=== PATIENT | male | born 1950 | race Caucasian/White ===

== ENCOUNTER 2017-12-22 13:29 | Inpatient (IN) | payer MEDICARE, OTHER ==
[2017-12-22 14:26] LABS: ABS Basophils 0 10^3/ul (0-0.2); ABS Eosinophils 0.1 10^3/ul (0-0.6); ABS Lymphocytes 1.3 10^3/ul (1.0-4.8); ABS Monocytes 0.5 10^3/ul (0-0.8); ABS Neutrophils 1.7 10^3/ul (1.5-7.7); ABS Nucleated RBC 0 10^3/ul; Eosinophil % 4.1 % (0-6); Hematocrit 31 % (42-52); Hemoglobin 9.7 g/dl (14.0-18.0); Lymphocyte % 35.7 % (25-47); Mean Corpuscular HGB Conc 31 g/dl (31-36); Mean Corpuscular Hemoglobin 26 pg (27-31); Mean Corpuscular Volume 81 fL (80-94); Mean Platelet Volume 8 um3 (7.4-10.4); Nucleated Red Blood Cells % 0.1; Platelet Count 256 10^3/ul (150-450); Red Cell Distribution Width 19 % (10.5-15); White Blood Count 3.6 10^3/ul (3.5-10.8)
[2017-12-22 14:36] LABS: EGFR Non-African American 105.8 (>60)
--- NOTE | 2017-12-22 14:50 | RAD ---
Indication: Slurred speech, weakness, headache. Comparison: No relevant prior exams available on the [facility] for comparison. Technique: Noncontrast CT vertex of skull through foramen magnum. Report: Mild prominence of the cerebral sulci and cerebellar fissures reflecting mild involutional change. Negative for harper matter white matter obscuration. 0.8 cm hypodensity at the RIGHT frontal lobe subcortical white matter reference image 18 of 32 most likely represents volume averaging with adjacent extra-axial space. No intra or extra-axial hemorrhage or mass effect evident. Unremarkable orbital contents. Negative for calvarial or skull base fracture or suspicious focal osseous lesion. Clear visualized paranasal sinuses and mastoid air spaces. Unremarkable scalp. IMPRESSION: 1. Mild involutional change. 2. Negative for intra or extra-axial hemorrhage. 3. Relative low suspicion 0.8 cm hypodensity at the RIGHT frontal lobe subcortical white matter is most suspicious for volume averaging with subjacent extra-axial space however an intra-axial lesion such as an evolving lacunar infarct is not entirely excluded. Correlate with clinical assessment and consider MRI for further evaluation if deemed appropriate.
[2017-12-22] MEDS ORDERED: NS 0.9% 1000 ML* 1,000 ML IV SCH (15:00)
--- NOTE | 2017-12-22 15:29 | RAD ---
HISTORY: Cough, vomiting COMPARISONS: None VIEWS: 3: Frontal and lateral views of the chest. FINDINGS: CARDIOMEDIASTINAL SILHOUETTE: The cardiomediastinal silhouette is normal. DANNY: The danny are normal. PLEURA: The costophrenic angles are sharp. No pleural abnormalities are noted. LUNG PARENCHYMA: The lungs are clear. ABDOMEN: The upper abdomen is clear. There is no subphrenic gas. BONES AND SOFT TISSUES: No bone or soft tissue abnormalities are noted. OTHER: A left-sided pacemaker is noted IMPRESSION: NO ACTIVE CARDIOPULMONARY DISEASE.
[2017-12-23 03:14] LABS: Urine Appearance Clear; Urine Blood Negative (Negative); Urine Color Straw; Urine Ketones Negative (Negative); Urine Protein Negative (Negative); Urine Specific Gravity 1.008 (1.010-1.030); Urine Urobilinogen Negative (Negative)
--- NOTE | 2017-12-23 06:53 | ED ---
Felisha Londono Nilda, scribed for Vineet Hui MD on 12/23/17 at 0119 . Progress - Progress Note Progress Note: This pt was s/o by Dr. Cruz, pending dispo, awaiting MHE. [0638] Ashish ( Psychiatry) states pt will be transferred to [facility] with Dx Bipolar. Course/Dx - Course Course Of Treatment: This pt was s/o by Dr. Cruz, pending dispo, awaiting MHE. [0638] Ashish (Psychiatry) states pt will be transferred to [facility] with Dx Bipolar. - Diagnoses Provider Diagnoses: Bipolar disorder The documentation as recorded by the jemimaibFelisha kan Nilda accurately reflects the service I personally performed and the decisions made by , Vineet Hui MD.
--- NOTE | 2017-12-23 07:37 | RAD ---
INDICATION: Right hip pain after a fall COMPARISON: None TECHNIQUE: 3 views of the right hip were obtained. FINDINGS: Bilaterally the hip prosthesis are anatomically aligned in the AP view and laterally on the right. There is no radiographically apparent fracture or dislocation. IMPRESSION: Anatomic alignment of bilateral hip prostheses. If the patient's symptoms persist follow-up imaging is recommended.
[2017-12-23] MEDS ORDERED: clonazePAM TAB(*) 1 MG PO ONE (09:47)
[2017-12-23] MEDS ORDERED: Citalopram TAB* 40 MG PO ONE (09:48)
[2017-12-23] MEDS ORDERED: Venlafaxine EXT RELEASE CAP* 75 MG PO ONE (09:49)
[2017-12-23] MEDS ORDERED: Nadolol TAB* 40 MG PO ONE (09:49)
[2017-12-23] MEDS ORDERED: amLODIPine TAB* 5 MG PO ONE (09:49)
[2017-12-23] MEDS ORDERED: Potassium Chlor TAB* 10 MEQ TAB.ER PO ONE (09:49)
[2017-12-23] MEDS ORDERED: Aspirin Low Dose CHEW TAB* 81 MG PO ONE (09:50)
[2017-12-23] MEDS ORDERED: Atorvastatin* 10 MG TAB PO ONE (09:50)
[2017-12-23] MEDS ORDERED: Fludrocortisone Acetate TAB* 0.1 MG PO ONE (09:51)
[2017-12-23] MEDS ORDERED: DULoxetine DR CAP* 60 MG CAP.DR PO ONE (09:51)
[2017-12-23] MEDS ORDERED: Gabapentin CAP(*) 300 MG PO ONE (09:51)
[2017-12-23] MEDS ORDERED: Omeprazole CAP* 20 MG PO ONE (09:52)
[2017-12-23] MEDS ORDERED: Losartan TAB* 25 MG PO ONE (09:52)
[2017-12-23] MEDS ORDERED: Labetalol TAB* 200 MG PO ONE (09:52)
--- NOTE | 2017-12-23 11:18 | PN ---
Progress Note - Progress Note Date of Service: 12/23/17 Note: Subjective: Patient denies any complaints or concerns at this time. Patient is distended and not responding to questions appropriately. Multiple medications need to be dispensed this morning. I have ordered all of his medications as he needs them. No when necessary medications is given at this time. He will need more medications at lunch time and again at dinnertime and before bed. He appears to be anxious, and is unable to focus on questions being asked. Objective: VS stable No change to current medications Cooperative and comfortable, yet distant and tangential Appearance: WDW, comfortable, pleasant, alert Skin: Soft dry skin, no lesions. Eyes: CHANTEL, EOMI, Conjunctiva pink with no redness or exudates. Neck: Full range of motion. Pulm: Chest symmetrical expansion. No deformities on posterior chest wall. Lungs clear to auscultation and percussion, without adventitious sounds. CV: Heart soundsRRR, Normal S1 and single S2. No S3, S4, rubs, or murmurs. Musculoskeletal: ROM WNL in all extremities. No deformities noted. Neuro: A&OX3 Psych: Logical, coherent Assessment: Patient has participated in plan with compliance to medications while awaiting assessment. Dx at this time remains Bipolar disorder. Plan: Continue mediations as prescribed. Will continue to monitor psych behaviors and need for any medication. Will provide a patient to provider assessment within every 24 hours during stay until safe discharge/transfer/ admission plan is established.
[2017-12-23] MEDS ORDERED: Al Hydrox/Mg Hydrox/Simet LIQ* 30 ML UDC PO PRN (12:07)
[2017-12-23] MEDS ORDERED: Acetaminophen TAB* 325 MG PO PRN (12:07)
--- NOTE | 2017-12-23 12:51 | ED ---
Cedrick Londono Angela, scribed for Nilesh Sargent MD on 12/23/17 at 1201 . Progress - Progress Note Progress Note: This pt was signed out by Dr. Hui, pending disposition, awaiting MHE. Pt was evaluated by the mental health furniture finisher and Dr. Tapia. Dr. Tapia recommends the pt to be admitted. Pt will be admitted to [facility], in stable condition, with a diagnosis of suicidal behavior and depressive disorder. Condition: Stable Disposition: Admit to [facility] Course/Dx - Diagnoses Provider Diagnoses: Suicidal behavior, Depressive disorder The documentation as recorded by the Cedrick moe Angela accurately reflects the service I personally performed and the decisions made by Arie owodward Walter, MD.
[2017-12-23] MEDS: ARIPiprazole TAB* 5 MG PO SCH (17:33)
[2017-12-23] MEDS: Gabapentin CAP(*) 300 MG PO SCH ×2 (17:34→20:19)
[2017-12-23] MEDS: Potassium Chlor TAB* 10 MEQ TAB.ER PO SCH (17:34)
[2017-12-23] MEDS: Butalb/Acetamin/Caff TAB* 1 TAB PO PRN (17:34)
[2017-12-23] MEDS: clonazePAM TAB(*) 1 MG PO PRN (17:34)
[2017-12-23] MEDS: Divalproex ER TAB(*) 500 MG PO SCH (20:18)
[2017-12-23] MEDS: Labetalol TAB* 200 MG PO SCH (20:20)
[2017-12-23] MEDS: Nadolol TAB* 40 MG PO SCH (20:20)
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
[2017-12-24] MEDS: Losartan TAB* 25 MG PO SCH (08:39)
[2017-12-24] MEDS: Atorvastatin* 20 MG TAB PO SCH (08:39)
[2017-12-24] MEDS: ARIPiprazole TAB* 5 MG PO SCH (08:39)
[2017-12-24] MEDS: DULoxetine DR CAP* 60 MG CAP.DR PO SCH (08:39)
[2017-12-24] MEDS: Nadolol TAB* 40 MG PO SCH ×2 (08:39→20:58)
[2017-12-24] MEDS: Aspirin EC Low Dose* 81 MG TAB.EC PO SCH (08:40)
[2017-12-24] MEDS: Potassium Chlor TAB* 10 MEQ TAB.ER PO SCH ×2 (08:40→17:42)
[2017-12-24] MEDS: amLODIPine TAB* 5 MG PO SCH (08:40)
[2017-12-24] MEDS: Omeprazole CAP* 20 MG PO SCH (08:40)
[2017-12-24] MEDS: Gabapentin CAP(*) 300 MG PO SCH ×3 (08:40→20:57)
[2017-12-24] MEDS: Labetalol TAB* 200 MG PO SCH ×2 (08:40→20:58)
[2017-12-24] MEDS: Butalb/Acetamin/Caff TAB* 1 TAB PO PRN ×3 (08:42→21:01)
[2017-12-24] MEDS: Divalproex ER TAB(*) 500 MG PO SCH (20:58)
[2017-12-24] MEDS: clonazePAM TAB(*) 1 MG PO PRN (21:03)
[2017-12-25] MEDS: Omeprazole CAP* 20 MG PO SCH (08:33)
[2017-12-25] MEDS: ARIPiprazole TAB* 5 MG PO SCH (08:33)
[2017-12-25] MEDS: Aspirin EC Low Dose* 81 MG TAB.EC PO SCH (08:33)
[2017-12-25] MEDS: Atorvastatin* 20 MG TAB PO SCH (08:33)
[2017-12-25] MEDS: DULoxetine DR CAP* 60 MG CAP.DR PO SCH (08:34)
[2017-12-25] MEDS: Losartan TAB* 25 MG PO SCH (08:34)
[2017-12-25] MEDS: Potassium Chlor TAB* 10 MEQ TAB.ER PO SCH ×2 (08:34→17:40)
[2017-12-25] MEDS: amLODIPine TAB* 5 MG PO SCH (08:34)
[2017-12-25] MEDS: Gabapentin CAP(*) 300 MG PO SCH ×3 (08:34→20:58)
[2017-12-25] MEDS: Nadolol TAB* 40 MG PO SCH ×2 (08:36→20:58)
[2017-12-25] MEDS: Butalb/Acetamin/Caff TAB* 1 TAB PO PRN ×3 (09:04→21:41)
[2017-12-25] MEDS: Labetalol TAB* 200 MG PO SCH ×2 (09:05→20:57)
[2017-12-25] MEDS: clonazePAM TAB(*) 1 MG PO PRN ×2 (10:04→20:57)
[2017-12-25] MEDS: Divalproex ER TAB(*) 500 MG PO SCH (20:57)
--- NOTE | 2017-12-25 22:29 | PN ---
Subjective - Subjective Date of Service: 12/25/17 Service Type: 70554 Hosp care 15 min low complexity Subjective: Mr. King is on wheelchair and was in the milieu. Appeared happy and denied any psychiatric complaints. Says he has been focusing on his el and accepting the losses or relationship better. Looking int an appartment for discharge. Denies any thoughts to harm self or others. Objective - Appearance Appearance: Healthy Appearing Dysmorphic Features: No Hygiene: Normal Grooming: Well Kept - Behavior Psychomotor Activities: Normal Exhibits Abnormal Movement: No - Attitude and Relatedness Attitude and Relatedness: Appropriate Eye Contact: Good - Speech Quality: Unpressured Latencies: Normal Quantity: Appropriate - Mood Patient's Decription of Mood: "Fine" - Affect Observed Affect: Non-labile - Thought Process Patient's Thought Process: Coherent, Goal Directed Thought Content: No Passive Wish, No Suicidal Planning, No Homicidal Ideation, No Paranoid Ideation - Sensorium Experiencing Hallucinations: No, Sensorium is Clear Type of Hallucinations: Visual: No, Auditory: No, Command: No - Level of Consciousness Level of Consciousness: Alert Orientation: Yes Intact, Yes Orientated to Time, Yes Orientated to Place, Yes Orientated to Person - Impulse Control Impulse Control: Tenuous - Insight and Judgement Insight and Judgement: Fair - Group Participation Particating in Group Activities: Yes - Medication Management Medication Management Adherence: Yes Assessment - Assessment Merits Inpatient Hospitalization: For Immediate Safety, For Stabilization, Pending Safe DC Plan Plan - Plan Treatment Plan: Name: ROYAL KING Birthdate: 1950 [id number] Continued Medication Management: Continue Outpt Medication Medications: Current Medications Acetaminophen (Tylenol Tab*) 650 mg PO Q4H PRN PRN Reason: for pain; or Temp >101 F Acetaminophen/Butalbital/Caffeine (Fioricet Tab*) 1 tab PO Q6H PRN PRN Reason: HEADACHE Last Admin: 12/25/17 21:41 Dose: 1 tab Al Hydrox/Mg Hydrox/Simethicone (Maalox Plus*) 30 ml PO Q4H PRN PRN Reason: INDIGESTION Last Admin: 12/23/17 17:33 Dose: 30 ml Amlodipine Besylate (Norvasc Tab*) 5 mg PO DAILY [facility] Last Admin: 12/25/17 08:34 Dose: 5 mg Aripiprazole (Abilify Tab*) 5 mg PO DAILY [facility] Last Admin: 12/25/17 08:33 Dose: 5 mg Aspirin (Aspirin Ec Low Dose*) 81 mg PO DAILY [facility] Last Admin: 12/25/17 08:33 Dose: 81 mg Atorvastatin Calcium (Lipitor*) 20 mg PO DAILY [facility] PRN Reason: Protocol Last Admin: 12/25/17 08:33 Dose: 20 mg Clonazepam (Klonopin Tab(*)) 1 mg PO BID PRN PRN Reason: ANXIETY Last Admin: 12/25/17 20:57 Dose: 1 mg Divalproex Sodium (Depakote Er Tab(*)) 1,000 mg PO BEDTIME [facility] Last Admin: 12/25/17 20:57 Dose: 1,000 mg Duloxetine HCl (Cymbalta Cap*) 60 mg PO DAILY [facility] Last Admin: 12/25/17 08:34 Dose: 60 mg Gabapentin (Neurontin Cap(*)) 600 mg PO TID [facility] Last Admin: 12/25/17 20:58 Dose: 600 mg Sodium Chloride (Ns 0.9% 1000 Ml*) 1,000 mls @ 150 mls/hr IV PER RATE [facility] Last Admin: 12/22/17 16:31 Dose: 150 mls/hr Labetalol HCl (Trandate Tab*) 200 mg PO BID [facility] Last Admin: 12/25/17 20:57 Dose: 200 mg Losartan Potassium (Cozaar Tab*) 100 mg PO DAILY [facility] Last Admin: 12/25/17 08:34 Dose: 100 mg Nadolol (Corgard Tab*) 20 mg PO BID [facility] Last Admin: 12/25/17 20:58 Dose: 20 mg Omeprazole (Prilosec Cap*) 20 mg PO DAILY [facility] Last Admin: 12/25/17 08:33 Dose: 20 mg Potassium Chloride (Klor Con Er Tab*) 10 meq PO BID WITH MEALS [facility] Last Admin: 12/25/17 17:40 Dose: 10 meq - Discharge Plan Discharge Plan: Outpatient Follow Up Outpatient Program: [facility]
[2017-12-26] MEDS: amLODIPine TAB* 5 MG PO SCH (07:53)
[2017-12-26] MEDS: Potassium Chlor TAB* 10 MEQ TAB.ER PO SCH ×2 (07:54→16:50)
[2017-12-26] MEDS: Atorvastatin* 20 MG TAB PO SCH (07:54)
[2017-12-26] MEDS: ARIPiprazole TAB* 5 MG PO SCH (07:54)
[2017-12-26] MEDS: clonazePAM TAB(*) 1 MG PO PRN ×2 (07:54→20:42)
[2017-12-26] MEDS: DULoxetine DR CAP* 60 MG CAP.DR PO SCH (07:54)
[2017-12-26] MEDS: Aspirin EC Low Dose* 81 MG TAB.EC PO SCH (07:54)
[2017-12-26] MEDS: Omeprazole CAP* 20 MG PO SCH (07:54)
[2017-12-26] MEDS: Butalb/Acetamin/Caff TAB* 1 TAB PO PRN ×3 (07:55→21:29)
[2017-12-26] MEDS: Labetalol TAB* 200 MG PO SCH (07:56)
[2017-12-26] MEDS: Nadolol TAB* 40 MG PO SCH ×2 (07:56→20:40)
[2017-12-26] MEDS: Gabapentin CAP(*) 300 MG PO SCH ×3 (07:58→20:38)
[2017-12-26] MEDS: Losartan TAB* 25 MG PO SCH (10:57)
[2017-12-26 13:02] LABS: ABS Basophils 0 10^3/ul (0-0.2); ABS Eosinophils 0.1 10^3/ul (0-0.6); ABS Lymphocytes 0.8 10^3/ul (1.0-4.8); ABS Monocytes 0.6 10^3/ul (0-0.8); ABS Neutrophils 2.3 10^3/ul (1.5-7.7); ABS Nucleated RBC 0 10^3/ul; Eosinophil % 2.2 % (0-6); Hematocrit 31 % (42-52); Hemoglobin 9.9 g/dl (14.0-18.0); Lymphocyte % 21.9 % (25-47); Mean Corpuscular HGB Conc 32 g/dl (31-36); Mean Corpuscular Hemoglobin 26 pg (27-31); Mean Corpuscular Volume 81 fL (80-94); Mean Platelet Volume 7 um3 (7.4-10.4); Nucleated Red Blood Cells % 0.1; Platelet Count 293 10^3/ul (150-450); Red Blood Count 3.77 10^6/ul (4.0-5.4); Red Cell Distribution Width 19 % (10.5-15); White Blood Count 3.8 10^3/ul (3.5-10.8)
[2017-12-26 13:07] LABS: Corrected Retic Count 0.6 % (0.5-1.5); Hematocrit for Retic CNT 31 % (42-52); RBC Retic Count 3.77 10^6/ul (4.6-6.2)
[2017-12-26 13:20] LABS: EGFR Non-African American 107.5 (>60)
--- NOTE | 2017-12-26 14:56 | RAD ---
Indication: Headaches for 6 months. History of ALS. Recent behavioral change. Question brain mass. Comparison: December 22, 2017 Technique: Noncontrast CT vertex of skull through foramen magnum. Report: Unremarkable cerebral sulci, ventricles, and basal cisterns. Mild prominence of the cerebellar fissures reflecting atrophy. Negative for harper matter white matter obscuration, intra or extra-axial hemorrhage, or mass effect. Clear partially visualized paranasal sinuses and mastoid air spaces. No suspicious skull base or calvarial lesions. Unremarkable scalp. IMPRESSION: No evidence for a brain mass within limits of noncontrast CT. Mild cerebellar atrophy.
--- NOTE | 2017-12-26 16:43 | PN ---
Subjective - Subjective Service Type: 09102 Hosp care 25 min moderate complexity Subjective: Patient reports he is "terrified" in regards to pursuing divorce. He states she will likely be served on Tuesday and she will be very angry. He states he is concerned about being homeless and without his car. He has been in touch with his children, Frederick and José as well as an real estate attorney friend, Shantanu. They have discussed the potential for Pierre to return to [place] to help care for his mother. He asked to complete an MMPI. He asked that his children be involved in his care. He states "Frederick needs to know I'm compliant with treatment." Residential Team Leader left s for both Robe and Jocelyne. Objective - Appearance Appearance: Well Developed/Nourished, Thin Framed Dysmorphic Features: Yes Hygiene: Dirty Grooming: Fairly Well Kept - Behavior Psychomotor Activities: Abnormal-Decreased Exhibits Abnormal Movement: Yes - Attitude and Relatedness Attitude and Relatedness: Cooperative Eye Contact: Fair - Speech Quality: Unpressured Latencies: Normal Quantity: Appropriate - Mood Patient's Decription of Mood: "terrified" - Affect Observed Affect: Depressed Affect Consistent with: Dysphoria - Thought Process Patient's Thought Process: Coherent, Goal Directed Thought Content: Yes Passive Wish, No Suicidal Planning, No Homicidal Ideation, No Paranoid Ideation - Sensorium Experiencing Hallucinations: No, Sensorium is Clear Type of Hallucinations: Visual: No, Auditory: No, Command: No - Level of Consciousness Level of Consciousness: Alert Orientation: Yes Intact, Yes Orientated to Time, Yes Orientated to Place, Yes Orientated to Person - Impulse Control Impulse Control: Tenuous - Insight and Judgement Insight and Judgement: Fair - Group Participation Particating in Group Activities: Yes - Medication Management Medication Management Adherence: Yes Assessment - Assessment Merits Inpatient Hospitalization: For Immediate Safety, For Stabilization, Consolidate Improvements, Pending Safe DC Plan Inpatient DSM-V Dx: F31.4 Clinical Impression: 67yo white male with history of bipolar d/o. He presented to ED with syncopal episode and was flagged for psychiatric needs. Recently, he has been hospitalized multiple times in the [place] system for suicidal gestures. He merits hospitalization for immediate safety and stabilization. Plan - Plan Treatment Plan: Name: ROYAL BARTON Birthdate: 1950 [id number] Continued Medication Management: Start Medication Medications: Current Medications Acetaminophen (Tylenol Tab*) 650 mg PO Q4H PRN PRN Reason: for pain; or Temp >101 F Acetaminophen/Butalbital/Caffeine (Fioricet Tab*) 1 tab PO Q6H PRN PRN Reason: HEADACHE Last Admin: 12/26/17 14:19 Dose: 1 tab Al Hydrox/Mg Hydrox/Simethicone (Maalox Plus*) 30 ml PO Q4H PRN PRN Reason: INDIGESTION Last Admin: 12/23/17 17:33 Dose: 30 ml Amlodipine Besylate (Norvasc Tab*) 5 mg PO DAILY [facility] Last Admin: 12/26/17 07:53 Dose: 5 mg Aripiprazole (Abilify Tab*) 5 mg PO DAILY [facility] Last Admin: 12/26/17 07:54 Dose: 5 mg Aspirin (Aspirin Ec Low Dose*) 81 mg PO DAILY [facility] Last Admin: 12/26/17 07:54 Dose: 81 mg Atorvastatin Calcium (Lipitor*) 20 mg PO DAILY [facility] PRN Reason: Protocol Last Admin: 12/26/17 07:54 Dose: 20 mg Clonazepam (Klonopin Tab(*)) 1 mg PO BID PRN PRN Reason: ANXIETY Last Admin: 12/26/17 07:54 Dose: 1 mg Divalproex Sodium (Depakote Er Tab(*)) 1,000 mg PO BEDTIME [facility] Last Admin: 12/25/17 20:57 Dose: 1,000 mg Duloxetine HCl (Cymbalta Cap*) 60 mg PO DAILY [facility] Last Admin: 12/26/17 07:54 Dose: 60 mg Fludrocortisone Acetate (Florinef Tab*) 0.1 mg PO DAILY [facility] Gabapentin (Neurontin Cap(*)) 600 mg PO TID [facility] Last Admin: 12/26/17 14:18 Dose: 600 mg Sodium Chloride (Ns 0.9% 1000 Ml*) 1,000 mls @ 150 mls/hr IV PER RATE [facility] Last Admin: 12/22/17 16:31 Dose: 150 mls/hr Labetalol HCl (Trandate Tab*) 100 mg PO BID [facility] Losartan Potassium (Cozaar Tab*) 100 mg PO DAILY [facility] Last Admin: 12/26/17 10:57 Dose: 100 mg Nadolol (Corgard Tab*) 20 mg PO BID [facility] Last Admin: 12/26/17 07:56 Dose: 20 mg Omeprazole (Prilosec Cap*) 20 mg PO DAILY [facility] Last Admin: 12/26/17 07:54 Dose: 20 mg Potassium Chloride (Klor Con Er Tab*) 10 meq PO BID WITH MEALS [facility] Last Admin: 12/26/17 07:54 Dose: 10 meq - Discharge Plan Discharge Plan: Consider Longer Term Tx
[2017-12-26] MEDS: Divalproex ER TAB(*) 500 MG PO SCH (20:41)
--- NOTE | 2017-12-26 20:56 | CONS ---
CC: Dr. Grayson, Tr Aguirre; Ruth Escobar NP * CONSULTATION REPORT: DATE OF CONSULT: 12/26/17 PRIMARY CARE PROVIDER: Dr. Grayson from [facility]. REQUESTING PROVIDER FOR CONSULT: Ruth Escobar NP MY ATTENDING PHYSICIAN WHILE IN THE HOSPITAL: Dr. Jose Antonio Lam (report dictated by Turner Sims NP) REASON FOR MEDICAL CONSULT: 1. Evaluation of medical problems and comorbid medical management. 2. Evaluation of syncope. HISTORY OF PRESENT ILLNESS: Mr. King is 67-year-old male patient, who presented to behavioral services unit on 12/23/17 with complaints of having suicidal ideation. He had multiple overdose attempts in the past. He was endorsing wish and depression. He was recently at [facility] in [place] for this. He was discharged. He presented to our ED and was admitted for stabilization. He endorses the fact that he has a significant history, says he has been hospitalized several times since March of 2017 for multiple reasons. 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 He says he also carries a history of PE, DVTs, peptic ulcer disease, hypertension, history of CVA, history of MRSA, depression , orthostatic hypotension. He has a history of lupus as well according to the patient. He says that this weekend on Tuesday, he had an episode where he was standing by the phone, down at the [facility], he had an episode where he fainted. He says that it was typical of his normal fainting spells. He had no chest pain. He just felt like he was going under for anesthesia, he went out, he came to. He does not know how long he was out for, he knew where he was. He denied having any again chest pain prior to or after. No shortness of breath. He says he has not had any more episodes, but again it is not uncommon for him to pass out. He says he was also noted to be on multiple different blood pressure medications and we were asked to help manage this and help also evaluate the syncope. Denies any recent fevers or chills. No vomiting or diarrhea. There have been no recent changes in his medications, and because of his medical complexity, we were asked to evaluate. PAST MEDICAL HISTORY: Significant for: 1. Syncope. 2. Orthostatic hypotension. 3. PE. 4. Hypertension. 5. CVA. 6. 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 7. He has a history of depression. 8. Also, history of MRSA and lupus according to the patient. PAST SURGICAL HISTORY: 1. He has a history of bilateral hip replacement. 2. He has had right knee replacement. 3. He has had multiple right hip revisions secondary to infections. 4. He has had an IVC filter placement. 5. He has had a pacemaker implanted on his right chest wall, which was then removed secondary to infection and now he has the pacemaker in the left chest wall, and he has had again IVC filter. MEDICATIONS: His home meds include: 1. Potassium 10 mEq p.o. b.i.d. with meals. 2. Klonopin 1 mg p.o. b.i.d. as needed. 3. Fioricet 1 capsule four times a day as needed. 4. Tylenol with caffeine 1 tablet every 6 hours as needed. 5. Celexa 40 mg a day. 6. Effexor 150 mg a day. 7. Nadolol 20 mg p.o. b.i.d. 8. Norvasc 5 mg daily. 9. Crestor 10 mg daily. 10. Aspirin 81 mg daily. 11. Florinef 0.1 mg p.o. daily. 12. Cymbalta 60 mg daily. 13. Neurontin 600 mg p.o. t.i.d. 14. Labetalol 200 mg p.o. b.i.d. 15. Cozaar 100 mg daily. 16. Melatonin 10 to 20 mg daily as needed. 17. Protonix 40 mg daily. 18. Requip 0.75 mg p.o. at bedtime. ALLERGIES TO MEDICATIONS: Include DEMEROL. FAMILY HISTORY: His mother had dementia. Father had a history of COPD and lupus as well. 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 He does not smoke. Does not drink alcohol. Surrogate decision maker is his friend, Shantanu. REVIEW OF SYSTEMS: There is no documented fever. He denies having any significant weight change. There was no double vision. He denies having any ear discharge. There has been no rhinorrhea, no sore throat, no thyroid enlargement, and denied having any chest pain. There was no orthopnea. There was no nocturnal dyspnea. Denied having any abdominal pain. There was no nausea, no vomiting. There was no dysuria, there was no frequency. No seizure. He did have this loss of conscience. No pruritus, he had no skin ulcerations. Review of 14 systems was completed, all others negative. PHYSICAL EXAM: Blood pressure 144/79 with a pulse 64; respirations 16; O2 saturation 99%, one this morning was read as 87%, we will repeat this; his temperature was 98.3. General: At this time, Mr. King is a 67-year-old male patient. He is sitting in the psychiatric bed. He does not appear to be in any acute distress. He is awake, he is alert, he is oriented x3. HEENT: Head: Atraumatic. Eyes: EOMs intact. Sclerae anicteric, not pale. Throat: Oral mucosa appears to be moist. No oropharyngeal erythema. Neck: Supple. Heart: Sounds S1, S2. He had regular rate and rhythm. No murmurs, rubs, or gallops. His lungs were clear to auscultation bilaterally. No wheezes, rales, or rhonchi. Abdomen: Soft, it was flat, it was nontender. Bowel sounds present. Extremities: Pulses were 2+ throughout. He had no peripheral edema noted. 5/5 strength. Neurologically, he is awake, he is alert, he is oriented x3. His speech is clear. His gait, he was able to walk from the comfort room in the psychiatric unit to 213 and he had a steady gait with a cane. He had no ataxia that I could elicit. His tongue was midline. Cranial nerves were intact. He had no gross focal deficits. His skin was intact. DIAGNOSTIC STUDIES/LAB DATA: Labs from 12/22/17, WBC of 3.6; RBC of 3.80; hemoglobin of 9.7, I have no previous records; hematocrit of 31; platelet count of 256. The sodium was 140, potassium 3.9, chloride 108, bicarb 26, BUN 15, creatinine 0.74, glucose 89, A1c is 6.0, calcium 8.9. Total bili 0.2, AST 19, ALT 15, alk phos 62. Total protein is 6.7, albumin 3.6. LDH was 67. Urine obtained was negative. Toxicology positive for barbiturates. DIAGNOSTIC DATA: Brain CT showed mild involutional change. Negative for intra or extraaxial hemorrhage, relatively low suspicion, 0.8-cm hypodensity at the right frontal lobe, subcortical white matter, mostly suspicious for volume averaging with subjacent extraaxial space; however, an intra-axial lesion such as an evolving infarct is not entirely excluded. Correlate with clinic assessment and consider MRI for further evaluation if deemed appropriate. Chest x-ray showed no active cardiopulmonary disease. He had a hip and pelvis x-ray, which showed anatomical alignment with bilateral hip prosthesis. EKG shows atrial paced rhythm, rate of 70. Old medical records were reviewed. ASSESSMENT AND PLAN: Mr. King is a 67-year-old male patient with a complex medical history coming into our psychiatric unit for stabilization of depression and suicidal ideation. We were asked to evaluate in consult for syncope and medical management of his comorbid medical problems. Our recommendations at this point are: 1. Depression, suicidal ideation. I will defer the management to psychiatric services and their team. 2. Syncope. Etiology is unclear. He has had multiple episodes of this. It could be related to the multiple system atrophy that he does have as there is autonomic dysfunction with this disease. I think foremost we need to get orthostatic blood pressures, interrogate the pacemaker, cut back on his beta chaz, and get him back on his Florinef. I am going to cut back on labetalol to 100 mg b.i.d., see how his blood pressure responds, get him back on his Florinef, and continue to monitor him. 3. History of pulmonary embolism. We will get records from [place] where he had the IVC filter put in. He says he was now put on blood thinners due to peptic ulcer disease, because he was diagnosed with 14 ulcers. We will try to get records to confirm this. 4. Hypertension. Again, blood pressure is 140 here. I will go ahead and cut back on the labetalol. I would like to let the patient run on the higher side. We will get orthostatic blood pressures and we will continue to follow. 5. Cerebrovascular accident. Continue with secondary prevention. 6. History of multiple system atrophy-P. Again, at this point, he did not have a rigid gait, he did not have any ataxia, and there were no tremors. However, I would like to get records from when this diagnosis was diagnosed in [place]. I have requested these records for the patient to continue with further management and we will continue with medication and supportive care at this point. 7. Orthostatic hypotension. Again, he has a history of this. We are going to repeat the vital signs today. Continue with Florinef. Cut back on some of his blood pressure meds. 8. Lupus. We will continue his current medical regimen and get records from his primary. 9. Anemia. Again, this could be his baseline; it is unclear. We will send off iron studies, B12, folate studies, retic count as well. I will get a Hemoccult as well. We will repeat his H and H now and repeat again tomorrow morning. 10. Question of brain mass. Unfortunately, he cannot have an MRI due to the pacemaker. He does say it is MRI safe, but we will try to get records to confirm this, but for the time being, I am going to repeat a CT of the brain to reevaluate this. If we need to, we could always get Neurology input. 11. DVT prophylaxis. Again, I would encourage ambulation. 12. Fluids, electrolytes, and nutrition. He can have a regular diet. 13. Code status. He wishes to be a DNR. TIME SPENT: On consult was 70 minutes, greater than half that time was spent face- to-face with the patient obtaining my history and physical, the other half time was spent going over the plan of care with the patient and implementing the plan of care. I discussed the plan of care with my attending, Dr. Lam; he is in agreement. TURNER SIMS, JOSEPH [id number]/CPS #: [id number] ROBERTO
[2017-12-26] MEDS: Labetalol TAB* 100 MG PO SCH (22:41)
[2017-12-27 08:03] LABS: Hematocrit 29 % (42-52); Hemoglobin 9.5 g/dl (14.0-18.0); Mean Corpuscular HGB Conc 33 g/dl (31-36); Mean Corpuscular Hemoglobin 26 pg (27-31); Mean Corpuscular Volume 80 fL (80-94); Mean Platelet Volume 8 um3 (7.4-10.4); Platelet Count 274 10^3/ul (150-450); Red Blood Count 3.66 10^6/ul (4.0-5.4); Red Cell Distribution Width 19 % (10.5-15); White Blood Count 2.8 10^3/ul (3.5-10.8)
[2017-12-27 08:45] LABS: ABS Basophils 0 10^3/ul (0-0.2); ABS Eosinophils 0.1 10^3/ul (0-0.6); ABS Lymphocytes 1.2 10^3/ul (1.0-4.8); ABS Monocytes 0.7 10^3/ul (0-0.8); ABS Neutrophils 0.8 10^3/ul (1.5-7.7); ABS Nucleated RBC 0 10^3/ul; Eosinophil % 4.3 % (0-6); Lymphocyte % 42.6 % (25-47); Nucleated Red Blood Cells % 0.1
[2017-12-27] MEDS: ARIPiprazole TAB* 5 MG PO SCH (09:02)
[2017-12-27] MEDS: Potassium Chlor TAB* 10 MEQ TAB.ER PO SCH ×2 (09:02→15:56)
[2017-12-27] MEDS: Atorvastatin* 20 MG TAB PO SCH (09:02)
[2017-12-27] MEDS: Gabapentin CAP(*) 300 MG PO SCH ×3 (09:02→20:39)
[2017-12-27] MEDS: Aspirin EC Low Dose* 81 MG TAB.EC PO SCH (09:02)
[2017-12-27] MEDS: Losartan TAB* 25 MG PO SCH (09:02)
[2017-12-27] MEDS: Omeprazole CAP* 20 MG PO SCH (09:02)
[2017-12-27] MEDS: DULoxetine DR CAP* 60 MG CAP.DR PO SCH (09:03)
[2017-12-27] MEDS: Labetalol TAB* 200 MG PO SCH (09:03)
[2017-12-27] MEDS: amLODIPine TAB* 5 MG PO SCH (09:03)
[2017-12-27] MEDS: clonazePAM TAB(*) 1 MG PO PRN ×2 (09:03→20:39)
[2017-12-27] MEDS: Nadolol TAB* 40 MG PO SCH ×2 (09:04→20:38)
[2017-12-27] MEDS: Fludrocortisone Acetate TAB* 0.1 MG PO SCH (09:56)
[2017-12-27] MEDS: Labetalol TAB* 100 MG PO SCH ×2 (09:56→20:38)
[2017-12-27] MEDS: Butalb/Acetamin/Caff TAB* 1 TAB PO PRN ×2 (11:02→18:51)
[2017-12-27] MEDS ORDERED: Divalproex ER TAB(*) 500 MG PO SCH (12:55)
--- NOTE | 2017-12-27 13:29 | PN ---
Subjective - Subjective Service Type: 08491 Hosp care 35 min high complexity Subjective: Pierre presents as dysphoric with restricted affect. He continues to be anxious about the reaction his may have when she is served divorce papers. He is notified of blood tests, hospitalist involvement and plan to hold depakote. He states he has been told in the past that about anemia. He states he wants to compliant with treatment. 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 He requested to work on an Pre[employer] and is doing so, albeit slowly. He is interactive and social in the milieu. Objective - Appearance Appearance: Thin Framed Dysmorphic Features: Yes Hygiene: Normal Grooming: Fairly Well Kept - Behavior Psychomotor Activities: Normal Exhibits Abnormal Movement: No - Attitude and Relatedness Attitude and Relatedness: Cooperative Eye Contact: Good - Speech Quality: Unpressured Latencies: Normal Quantity: Appropriate - Mood Patient's Decription of Mood: "Anxious" - Affect Observed Affect: Depressed Affect Consistent with: Dysphoria - Thought Process Patient's Thought Process: Coherent, Over Inclusive Thought Content: No Passive Wish, No Suicidal Planning, No Homicidal Ideation, No Paranoid Ideation - Sensorium Experiencing Hallucinations: No, Sensorium is Clear Type of Hallucinations: Visual: No, Auditory: No, Command: No - Level of Consciousness Level of Consciousness: Alert Orientation: Yes Intact, Yes Orientated to Time, Yes Orientated to Place, Yes Orientated to Person - Impulse Control Impulse Control: Tenuous - Insight and Judgement Insight and Judgement: Fair - Group Participation Particating in Group Activities: Yes - Medication Management Medication Management Adherence: Yes Assessment - Assessment Merits Inpatient Hospitalization: For Immediate Safety, For Stabilization, Diagnosis Determination, For Ongoing Evaluation, Consolidate Improvements, Pending Safe DC Plan Inpatient DSM-V Dx: F31.4 Clinical Impression: 67yo white male with history of bipolar d/o. He presented to ED with syncopal episode and was flagged for psychiatric needs. Recently, he has been hospitalized multiple times in the [place] system for suicidal gestures. He merits hospitalization for immediate safety and stabilization. Plan - Plan Treatment Plan: Name: ROYAL BARTON Birthdate: 1950 [id number] continue acute intensive psychiatric treatment. hold depakote. continue collaboration with hospitalist service. continue to obtain collateral information from family members. Continued Medication Management: Different Medication Medications: Current Medications Acetaminophen (Tylenol Tab*) 650 mg PO Q4H PRN PRN Reason: for pain; or Temp >101 F Acetaminophen/Butalbital/Caffeine (Fioricet Tab*) 1 tab PO Q6H PRN PRN Reason: HEADACHE Last Admin: 12/27/17 11:02 Dose: 1 tab Al Hydrox/Mg Hydrox/Simethicone (Maalox Plus*) 30 ml PO Q4H PRN PRN Reason: INDIGESTION Last Admin: 12/23/17 17:33 Dose: 30 ml Amlodipine Besylate (Norvasc Tab*) 5 mg PO DAILY [facility] Last Admin: 12/27/17 09:03 Dose: 5 mg Aripiprazole (Abilify Tab*) 5 mg PO DAILY [facility] Last Admin: 12/27/17 09:02 Dose: 5 mg Aspirin (Aspirin Ec Low Dose*) 81 mg PO DAILY [facility] Last Admin: 12/27/17 09:02 Dose: 81 mg Atorvastatin Calcium (Lipitor*) 20 mg PO DAILY [facility] PRN Reason: Protocol Last Admin: 12/27/17 09:02 Dose: 20 mg Clonazepam (Klonopin Tab(*)) 1 mg PO BID PRN PRN Reason: ANXIETY Last Admin: 12/27/17 09:03 Dose: 1 mg Duloxetine HCl (Cymbalta Cap*) 60 mg PO DAILY [facility] Last Admin: 12/27/17 09:03 Dose: 60 mg Fludrocortisone Acetate (Florinef Tab*) 0.1 mg PO DAILY [facility] Last Admin: 12/27/17 09:56 Dose: Not Given Gabapentin (Neurontin Cap(*)) 600 mg PO TID [facility] Last Admin: 12/27/17 13:01 Dose: 600 mg Sodium Chloride (Ns 0.9% 1000 Ml*) 1,000 mls @ 150 mls/hr IV PER RATE [facility] Last Admin: 12/22/17 16:31 Dose: 150 mls/hr Labetalol HCl (Trandate Tab*) 100 mg PO BID [facility] Last Admin: 12/27/17 09:56 Dose: Not Given Losartan Potassium (Cozaar Tab*) 100 mg PO DAILY [facility] Last Admin: 12/27/17 09:02 Dose: 100 mg Nadolol (Corgard Tab*) 20 mg PO BID [facility] Last Admin: 12/27/17 09:04 Dose: 20 mg Omeprazole (Prilosec Cap*) 20 mg PO DAILY [facility] Last Admin: 12/27/17 09:02 Dose: 20 mg Potassium Chloride (Klor Con Er Tab*) 10 meq PO BID WITH MEALS [facility] Last Admin: 12/27/17 09:02 Dose: 10 meq - Discharge Plan Discharge Plan: Consider Longer Term Tx
[2017-12-27 16:00] LABS: Transferrin 255 mg/dL (200 - 360)
--- NOTE | 2017-12-27 17:38 | PN ---
Subjective Date of Service: 12/27/17 Interval History: ANC 800. Reports long history of low blood cell counts; Depakote new since [facility] admission 2 weeks ago. Previously on venlafaxine (last ~1 month ago but has some at home). Stopped citalopram in Sep, on cymbalta since. reports 7-8 months of "dark chili" black bowel movements. EGD March 2017 [facility] with multiple ulcers, started carafate, PPI. Better ~10 weeks later. Colonoscopy [facility] 2014 poor prep. Iron deficiency, never on supplementation. UGIB 2011, got 11u pRBC. per HPI, son reports pt very manipulative. going from hospital to hospital trying to get fiorect to OD on. mood is "flat". 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 MSA-P evaluated by [facility] Jun & Aug 2017. After Dr. Chakraborty of [facility] suspected. Multiple syncopes last 10months. thinks florinef helps but does not karli. 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 Objective Active Medications: Acetaminophen (Tylenol Tab*) 650 mg PO Q4H PRN PRN Reason: for pain; or Temp >101 F Acetaminophen/Butalbital/Caffeine (Fioricet Tab*) 1 tab PO Q6H PRN PRN Reason: HEADACHE Last Admin: 12/27/17 11:02 Dose: 1 tab Al Hydrox/Mg Hydrox/Simethicone (Maalox Plus*) 30 ml PO Q4H PRN PRN Reason: INDIGESTION Last Admin: 12/23/17 17:33 Dose: 30 ml Amlodipine Besylate (Norvasc Tab*) 5 mg PO DAILY [facility] Last Admin: 12/27/17 09:03 Dose: 5 mg Aripiprazole (Abilify Tab*) 5 mg PO DAILY [facility] Last Admin: 12/27/17 09:02 Dose: 5 mg Aspirin (Aspirin Ec Low Dose*) 81 mg PO DAILY [facility] Last Admin: 12/27/17 09:02 Dose: 81 mg Atorvastatin Calcium (Lipitor*) 20 mg PO DAILY [facility] PRN Reason: Protocol Last Admin: 12/27/17 09:02 Dose: 20 mg Clonazepam (Klonopin Tab(*)) 1 mg PO BID PRN PRN Reason: ANXIETY Last Admin: 12/27/17 09:03 Dose: 1 mg Duloxetine HCl (Cymbalta Cap*) 60 mg PO DAILY [facility] Last Admin: 12/27/17 09:03 Dose: 60 mg Fludrocortisone Acetate (Florinef Tab*) 0.1 mg PO DAILY [facility] Last Admin: 12/27/17 09:56 Dose: Not Given Gabapentin (Neurontin Cap(*)) 600 mg PO TID [facility] Last Admin: 12/27/17 13:01 Dose: 600 mg Sodium Chloride (Ns 0.9% 1000 Ml*) 1,000 mls @ 150 mls/hr IV PER RATE [facility] Last Admin: 12/22/17 16:31 Dose: 150 mls/hr Labetalol HCl (Trandate Tab*) 100 mg PO BID [facility] Last Admin: 12/27/17 09:56 Dose: Not Given Losartan Potassium (Cozaar Tab*) 100 mg PO DAILY [facility] Last Admin: 12/27/17 09:02 Dose: 100 mg Nadolol (Corgard Tab*) 20 mg PO BID [facility] Last Admin: 12/27/17 09:04 Dose: 20 mg Omeprazole (Prilosec Cap*) 20 mg PO DAILY [facility] Last Admin: 12/27/17 09:02 Dose: 20 mg Potassium Chloride (Klor Con Er Tab*) 10 meq PO BID WITH MEALS [facility] Last Admin: 12/27/17 15:56 Dose: 10 meq Vital Signs - 8 hr 12/27/17 12/27/17 12/27/17 10:19 10:20 11:02 Respiratory 14 14 16 Rate 12/27/17 12/27/17 12/27/17 11:45 13:01 13:13 Respiratory 14 14 16 Rate 12/27/17 13:39 Respiratory 14 Rate Oxygen Devices in Use Now: None Appearance: NAD, in wheelchair. Eyes: No Scleral Icterus, PERRLA Ears/Nose/Mouth/Throat: NL Teeth, Lips, Gums Neck: NL Appearance and Movements; NL JVP Respiratory: Symmetrical Chest Expansion and Respiratory Effort, Clear to Auscultation, - - slight crackles right base Cardiovascular: NL Sounds; No Murmurs; No JVD, RRR Abdominal: NL Sounds; No Tenderness; No Distention, No Hepatosplenomegaly Extremities: No Edema, - - right calve bigger than left Skin: No Rash or Ulcers, No Nodules or Sclerosis Neurological: Alert and Oriented x 3, NL Sensation, NL Muscle Strength and Tone Nutrition: Taking PO's Result Diagrams: 12/27/17 07:29 12/26/17 12:52 Additional Lab and Data: Laboratory Results - last 24 hr 12/26/17 12/27/17 12/27/17 12:52 07:29 07:29 WBC 2.8 L RBC 3.66 L Hgb 9.5 L Hct 29 L MCV 80 MCH 26 L MCHC 33 RDW 19 H Plt Count 274 MPV 8 Neut % (Auto) 28.8 L Lymph % (Auto) 42.6 [place] % (Auto) 23.6 H Eos % (Auto) 4.3 Baso % (Auto) 0.7 Absolute Neuts (auto) 0.8 L* Absolute Lymphs (auto) 1.2 Absolute Monos (auto) 0.7 Absolute Eos (auto) 0.1 Absolute Basos (auto) 0 Absolute Nucleated RBC 0 Nucleated RBC % 0.1 Haptoglobin 129 Hem Pathologist Commnt Transferrin 255 Valproic Acid 39.0 L Assess/Plan/Problems-Billing Assessment: 67 yo male PMH bipolar, depression with multiple SI/SA, per son manipulative for gain of [place]/hospital shopping, tentative diagnosis of Multisystem Atrophy w/ Parkinsons (symptoms of recurrent syncope, SOB), UGIB and ulcers, CLEVE p/w syncopes. Developing neutropenia, recently started depakote. Orthostatic on florinef - Patient Problems (1) Syncope Current Visit: Yes Status: Acute Code(s): R55 - SYNCOPE AND COLLAPSE SNOMED Code(s): 488655759 Comment: likely 2/2 MSA-P + relative anemia continue florinef, titrate (2) Orthostatic hypotension dysautonomic syndrome Current Visit: Yes Status: Acute Code(s): G90.3 - MULTI-SYSTEM DEGENERATION OF THE AUTONOMIC NERVOUS SYSTEM SNOMED Code(s): 63654508 (3) Multiple system atrophy P Current Visit: Yes Status: Acute Code(s): G23.2 - STRIATONIGRAL DEGENERATION SNOMED Code(s): 572924843 (4) Iron deficiency anemia Current Visit: Yes Status: Acute Code(s): D50.9 - IRON DEFICIENCY ANEMIA, UNSPECIFIED SNOMED Code(s): 30931109 Comment: would get stool guiac. Start iron supplements if lisa melena observered then GI consult would be appropriate. (5) Neutropenia Current Visit: Yes Status: Acute Code(s): D70.9 - NEUTROPENIA, UNSPECIFIED SNOMED Code(s): 781088765 Comment: afebrile. get bcx if spikes fever. possibly from depakote. cbc daily. (6) Bipolar disorder Current Visit: Yes Status: Acute Comment: stopping depakote in setting of neutropenia (7) HTN (hypertension) Current Visit: Yes Status: Acute Code(s): I10 - ESSENTIAL (PRIMARY) HYPERTENSION SNOMED Code(s): 58566123 Comment: amlodipine 5 losartan 100 labetalol 100mg bid nadaolol 20mg bid (8) Suicidal behavior Current Visit: Yes Status: Acute Code(s): R46.89 - OTHER SYMPTOMS AND SIGNS INVOLVING APPEARANCE AND BEHAVIOR SNOMED Code(s): 440135405 Comment: per psychiatric service. currently lisa and adriel. Status and Disposition: psych. medicine consulting.
--- NOTE | 2017-12-27 19:37 | ED ---
Reginald Londono Julia, scribed for Shakeel Cruz MD on 12/22/17 at 1349 . Headache - HPI Summary HPI Summary: This patient is a 67 year old M BIBA to [facility] with a chief complaint of double vision, parietal headache, and drowsiness while driving to a meeting that required him to pull off the road. 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 Patient reports gradually worsening slurred speech and generalized weakness. Patient reports left sided weakness and neck pain at baseline. He states he vomited some medications last night, but did not specify. The patients son was contacted after initial interaction. He states his father has been in and out of hospitals for overdoses of barbiturates. He was recently released from the [facility] and drove to [place] a few nights ago. He states his father habitually drives from town to town checking into hotels, taking barbiturates, and then driving to hospitals. He states he would like his father to receive psychiatric help and has a history of bipolar disorder. Patients Son: Robe King, , [place] - History Of Current Complaint Stated Complaint: WEAKNESS/HEADACHE Time Seen by Provider: 12/22/17 13:35 Hx Obtained From: Patient, Family/Solution Sales Senior Executive, EMS Onset/Duration: Started hours ago Timing: Constant Location of Headache: Parietal Associated Signs And Symptoms: Vomiting, Visual Changes - Allergies/Home Medications Allergies/Adverse Reactions: Allergies Allergy/AdvReac Type Severity Reaction Status Date / Time meperidine [From Demerol] Allergy See Comment Verified 12/22/17 14:03 Home Medications: Home Medications Acetaminophen/Caffeine [Ra Tension Headache Pain Cplt] 1 each PO Q6HR PRN [History Confirmed 12/22/17] Aspirin EC Low Dose* [Ecotrin EC Low Dose 81 MG*] 81 mg PO DAILY 12/22/17 [ History Confirmed 12/22/17] Butalb/Acetaminophen/Caffeine [Butalbital/Acetaminophen/ 50-325-40 mg-] 1 cap PO QID PRN 12/22/17 [History Confirmed 12/22/17] Citalopram TAB* [CeleXA TAB*] 40 mg PO DAILY 12/22/17 [History Confirmed ] DULoxetine DR CAP* [Cymbalta CAP*] 60 mg PO DAILY 12/22/17 [History Confirmed ] Fludrocortisone Acetate TAB* [Florinef TAB*] 0.1 mg PO DAILY 12/22/17 [History Confirmed 12/22/17] Gabapentin CAP(*) [Neurontin 300 CAP(*)] 600 mg PO TID 12/22/17 [History Confirmed 12/22/17] Labetalol TAB* [Trandate TAB*] 200 mg PO BID 12/22/17 [History Confirmed ] Losartan TAB* [Cozaar TAB*] 100 mg PO DAILY 12/22/17 [History Confirmed 12/22/17 ] Melatonin 10 - 20 mg PO DAILY PRN 12/22/17 [History Confirmed 12/22/17] Nadolol (NF) 20 mg PO BID 12/22/17 [History Confirmed 12/22/17] Pantoprazole TAB (NF) [Protonix TAB (NF)] 40 mg PO DAILY 12/22/17 [History Confirmed 12/22/17] Potassium Chlor TAB* [Klor Con ER TAB*] 10 meq PO BID WITH MEALS 12/22/17 [ History Confirmed 12/22/17] Ropinirole TAB* [Requip TAB*] 0.75 mg PO BEDTIME 12/22/17 [History Confirmed 06/03] Rosuvastatin (NF) [Crestor (NF)] 10 mg PO DAILY 12/22/17 [History Confirmed 06/03] Venlafaxine EXT RELEASE CAP* [Effexor Xr CAP*] 150 mg PO DAILY 12/22/17 [ History Confirmed 12/22/17] amLODIPine TAB* [Norvasc 5 mg TAB*] 5 mg PO DAILY 12/22/17 [History Confirmed ] clonazePAM TAB(*) [KlonoPIN TAB(*)] 1 mg PO BID PRN 12/22/17 [History Confirmed 12/22/17] PMH/Surg Hx/FS Hx/Imm Hx EENT History: Denies: Hx Deafness Neurological History: Reports: Hx Transient Ischemic Attacks (TIA) Psychiatric History: Reports: Hx Bipolar Disorder, Hx Suicide Attempt, Hx Substance Abuse - Social History 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 Hx Substance Use: Yes - barbiturates Review of Systems Positive: Blurred Vision Positive: Vomiting Positive: Headache, Weakness, Slurred Speech All Other Systems Reviewed And Are Negative: Yes Physical Exam - Summary Physical Exam Summary: Appearance: lethargic, eyes easily closed while speaking, s Skin: Warm, Dry, No rash Eyes: Normal, PERRL, EOMI, sclera anicteric ENT: Normal Neck: Supple, nontender Respiratory: Clear to auscultation Cardiovascular: S1, S2, no murmur, no rub, no gallop Abdomen: Soft, nontender, no organomegaly Bowel sounds: Present Musculoskeletal: Normal, Strength/ROM Intact, no edema, pulses symmetrical Neurological: Normal, A&Ox3, cranial nerves II-XII WNL, follows commands, gait not tested, sensation intact to pin and light touch, slow speech that is somewhat slurred Psychiatric: affect normal, behavior appropriate, dressed appropriately, judgment intact Triage Information Reviewed: Yes Vital Signs On Initial Exam: Initial Vitals Temp Pulse Resp BP Pulse Ox 36.7 C 70 18 107/80 100 12/22/17 13:46 12/22/17 13:46 12/22/17 13:46 12/22/17 13:46 12/22/17 13:46 Vital Signs Reviewed: Yes Diagnostics - Vital Signs Vital Signs Temp Pulse Resp BP Pulse Ox 12/23/17 14:35 37.4 C 73 17 128/78 97 12/23/17 14:31 37.3 C 69 16 158/82 100 12/23/17 07:50 37.3 C 70 16 134/85 100 12/23/17 01:31 37.3 C 70 16 104/69 98 12/22/17 17:00 18 142/104 12/22/17 16:30 20 107/75 12/22/17 16:00 19 90/62 12/22/17 15:30 15 124/86 12/22/17 15:00 70 18 116/73 100 12/22/17 14:52 70 15 117/77 100 12/22/17 14:39 70 18 100 12/22/17 14:00 70 19 105/80 99 12/22/17 13:57 70 15 100 12/22/17 13:55 108/77 12/22/17 13:46 36.7 C 70 18 107/80 100 - Laboratory Lab Results: Lab Results 12/22/17 12/22/17 12/22/17 Range/Units 14:14 14:14 14:14 WBC 3.6 (3.5-10.8) 10^3/ul RBC 3.80 L (4.0-5.4) 10^6/ul Hgb 9.7 L (14.0-18.0) g/dl Hct 31 L (42-52) % MCV 81 (80-94) fL MCH 26 L (27-31) pg MCHC 31 (31-36) g/dl RDW 19 H (10.5-15) % Plt Count 256 (150-450) 10^3/ul MPV 8 (7.4-10.4) um3 Neut % (Auto) 46.4 (38-83) % Lymph % (Auto) 35.7 (25-47) % [place] % (Auto) 13.2 H (0-7) % Eos % (Auto) 4.1 (0-6) % Baso % (Auto) 0.6 (0-2) % Absolute Neuts (auto) 1.7 (1.5-7.7) 10^3/ul Absolute Lymphs (auto) 1.3 (1.0-4.8) 10^3/ul Absolute Monos (auto) 0.5 (0-0.8) 10^3/ul Absolute Eos (auto) 0.1 (0-0.6) 10^3/ul Absolute Basos (auto) 0 (0-0.2) 10^3/ul Absolute Nucleated RBC 0 10^3/ul Nucleated RBC % 0.1 Sodium 140 (133-145) mmol/L Potassium 3.9 (3.5-5.0) mmol/L Chloride 108 (101-111) mmol/L Carbon Dioxide 26 (22-32) mmol/L Anion Gap 6 (2-11) mmol/L BUN 15 (6-24) mg/dL Creatinine 0.74 (0.67-1.17) mg/dL Est GFR ( Amer) 136.1 (>60) Est GFR (Non-Af Amer) 105.8 (>60) BUN/Creatinine Ratio 20.3 H (8-20) Glucose 89 (70-100) mg/dL Hemoglobin A1c 6.0 H (4.0-5.6) % Calcium 8.9 (8.6-10.3) mg/dL Total Bilirubin 0.20 (0.2-1.0) mg/dL AST 19 (13-39) U/L ALT 17 (7-52) U/L Alkaline Phosphatase 62 (34-104) U/L Total Protein 6.7 (6.4-8.9) g/dL Albumin 3.6 (3.2-5.2) g/dL Globulin 3.1 (2-4) g/dL Albumin/Globulin Ratio 1.2 (1-3) Triglycerides 45 mg/dL Cholesterol 131 mg/dL LDL Cholesterol 67 mg/dL HDL Cholesterol 55.0 mg/dL Urine Color Urine Appearance Urine pH (5-9) Ur Specific [place] (1.010-1.030) Urine Protein (Negative) Urine Ketones (Negative) Urine Blood (Negative) Urine Nitrate (Negative) Urine Bilirubin (Negative) Urine Urobilinogen (Negative) Ur Leukocyte Esterase (Negative) Urine Glucose (Negative) Salicylates (<30) mg/dL Urine Opiates Screen (None Detect) Acetaminophen mcg/mL Ur Barbiturates Screen (None Detect) Ur Phencyclidine Scrn (None Detect) Ur Amphetamines Screen (None Detect) U Benzodiazepines Scrn (None Detect) Urine Cocaine Screen (None Detect) U Cannabinoids Screen (None Detect) Serum Alcohol < 10 (<10) mg/dL 12/22/17 12/22/17 12/22/17 Range/Units 15:30 16:34 22:06 WBC (3.5-10.8) 10^3/ul RBC (4.0-5.4) 10^6/ul Hgb (14.0-18.0) g/dl Hct (42-52) % MCV (80-94) fL MCH (27-31) pg MCHC (31-36) g/dl RDW (10.5-15) % Plt Count (150-450) 10^3/ul MPV (7.4-10.4) um3 Neut % (Auto) (38-83) % Lymph % (Auto) (25-47) % [place] % (Auto) (0-7) % Eos % (Auto) (0-6) % Baso % (Auto) (0-2) % Absolute Neuts (auto) (1.5-7.7) 10^3/ul Absolute Lymphs (auto) (1.0-4.8) 10^3/ul Absolute Monos (auto) (0-0.8) 10^3/ul Absolute Eos (auto) (0-0.6) 10^3/ul Absolute Basos (auto) (0-0.2) 10^3/ul Absolute Nucleated RBC 10^3/ul Nucleated RBC % Sodium (133-145) mmol/L Potassium (3.5-5.0) mmol/L Chloride (101-111) mmol/L Carbon Dioxide (22-32) mmol/L Anion Gap (2-11) mmol/L BUN (6-24) mg/dL Creatinine (0.67-1.17) mg/dL Est GFR ( Amer) (>60) Est GFR (Non-Af Amer) (>60) BUN/Creatinine Ratio (8-20) Glucose (70-100) mg/dL Hemoglobin A1c (4.0-5.6) % Calcium (8.6-10.3) mg/dL Total Bilirubin (0.2-1.0) mg/dL AST (13-39) U/L ALT (7-52) U/L Alkaline Phosphatase (34-104) U/L Total Protein (6.4-8.9) g/dL Albumin (3.2-5.2) g/dL Globulin (2-4) g/dL Albumin/Globulin Ratio (1-3) Triglycerides mg/dL Cholesterol mg/dL LDL Cholesterol mg/dL HDL Cholesterol mg/dL Urine Color Straw Urine Appearance Clear Urine pH 7.0 (5-9) Ur Specific [place] 1.008 L (1.010-1.030) Urine Protein Negative (Negative) Urine Ketones Negative (Negative) Urine Blood Negative (Negative) Urine Nitrate Negative (Negative) Urine Bilirubin Negative (Negative) Urine Urobilinogen Negative (Negative) Ur Leukocyte Esterase Negative (Negative) Urine Glucose Negative (Negative) Salicylates 13.20 (<30) mg/dL Urine Opiates Screen None detected (None Detect) Acetaminophen 25 mcg/mL Ur Barbiturates Screen Presumptive positive A (None Detect) Ur Phencyclidine Scrn None detected (None Detect) Ur Amphetamines Screen None detected (None Detect) U Benzodiazepines Scrn None detected (None Detect) Urine Cocaine Screen None detected (None Detect) U Cannabinoids Screen None detected (None Detect) Serum Alcohol (<10) mg/dL Result Diagrams: 12/27/17 07:29 12/26/17 12:52 Lab Statement: Any lab studies that have been ordered have been reviewed, and results considered in the medical decision making process. - Radiology CXR Radiology Interpretation Completed By: Radiologist - NO ACTIVE CARDIOPULMONARY DISEASE. ED Physician has reviewd reports. - CT Brain CT CT Interpretation Completed By: Radiologist - 1. Mild involutional change. 2. Negative for intra or extra-axial hemorrhage. 3. Relative low suspicion 0.8 cm hypodensity at the RIGHT frontal lobe subcortical white matter is most suspicious for volume averaging with subjacent extra-axial space however an intra-axial lesion such as an evolving lacunar infarct is not entirely excluded. Correlate with clinical assessment and consider MRI for further evaluation if deemed appropriate. ED Physician has reviewed this report. Hip XR CT Interpretation Completed By: ED Physician - Negative for fracture. - EKG 1502 Cardiac Rate: NL - at 70 BPM EKG Rhythm: Sinus Rhythm - atrial paced rhythm EKG Interpretation: elevated QT interval Re-Evaluation - Re-Evaluation 1 Re-Evaluation Time: 14:47 Change: Worse - patient is sounding more suicidal Headache Course/Dx - Course Course Of Treatment: Patient presents with double vision, parietal headache, and drowsiness while driving to a meeting that required him to pull off the road. EMS reports normal vitals and unusual behavior. Patient reports gradually worsening slurred speech and generalized weakness. He states he vomited some medications last night, but did not specify. The patients son was contacted after initial interaction. He states his father has been in and out of hospitals for overdoses of barbiturates. He states his father habitually drives from town to town checking into hotels, taking barbiturates, and then driving to hospitals. He states he would like his father to receive psychiatric help and has a history of bipolar disorder. Bloodwork is normal, besides barbiturates. Patient is for observed awaiting drug metabolism and a mental health evaluation. Patient fell out of bed at 21:46. A Hip XR was ordered, and was negative. - Diagnoses Provider Diagnoses: Suicidal behavior, Depressive disorder Discharge - Discharge Plan Condition: Fair Disposition: [facility]IATRIC [facility] [place] Disposition Comment: transferred to psychiatry The documentation as recorded by the Reginald moe Julia accurately reflects the service I personally performed and the decisions made by me, Shakeel Cruz MD.
[2017-12-28] MEDS: Butalb/Acetamin/Caff TAB* 1 TAB PO PRN ×3 (07:27→19:50)
[2017-12-28] MEDS: clonazePAM TAB(*) 1 MG PO PRN (09:09)
[2017-12-28] MEDS: Losartan TAB* 25 MG PO SCH (09:09)
[2017-12-28] MEDS: Labetalol TAB* 100 MG PO SCH ×2 (09:10→20:17)
[2017-12-28] MEDS: DULoxetine DR CAP* 60 MG CAP.DR PO SCH (09:10)
[2017-12-28] MEDS: Omeprazole CAP* 20 MG PO SCH (09:10)
[2017-12-28] MEDS: Atorvastatin* 20 MG TAB PO SCH (09:10)
[2017-12-28] MEDS: ARIPiprazole TAB* 5 MG PO SCH (09:10)
[2017-12-28] MEDS: Potassium Chlor TAB* 10 MEQ TAB.ER PO SCH ×2 (09:10→17:54)
[2017-12-28] MEDS: Fludrocortisone Acetate TAB* 0.1 MG PO SCH (09:10)
[2017-12-28] MEDS: Gabapentin CAP(*) 300 MG PO SCH ×3 (09:10→20:16)
[2017-12-28] MEDS: amLODIPine TAB* 5 MG PO SCH (09:10)
[2017-12-28] MEDS: Aspirin EC Low Dose* 81 MG TAB.EC PO SCH (09:11)
[2017-12-28] MEDS: Nadolol TAB* 40 MG PO SCH ×2 (09:11→20:18)
[2017-12-28 12:25] LABS: ABS Basophils 0 10^3/ul (0-0.2); ABS Eosinophils 0.1 10^3/ul (0-0.6); ABS Monocytes 0.7 10^3/ul (0-0.8); ABS Neutrophils 2.5 10^3/ul (1.5-7.7); ABS Nucleated RBC 0 10^3/ul; Eosinophil % 1.9 % (0-6); Hematocrit 32 % (42-52); Hemoglobin 10.1 g/dl (14.0-18.0); Lymphocyte % 22.4 % (25-47); Mean Corpuscular HGB Conc 32 g/dl (31-36); Mean Corpuscular Hemoglobin 26 pg (27-31); Mean Corpuscular Volume 81 fL (80-94); Mean Platelet Volume 8 um3 (7.4-10.4); Nucleated Red Blood Cells % 0.1; Platelet Count 315 10^3/ul (150-450); Red Blood Count 3.97 10^6/ul (4.0-5.4); Red Cell Distribution Width 20 % (10.5-15); White Blood Count 4.3 10^3/ul (3.5-10.8)
--- NOTE | 2017-12-28 15:46 | PN ---
Subjective - Subjective Service Type: 13488 Hosp care 25 min moderate complexity Subjective: Received phone call this morning from patient's son, Frederick. He states he spoke with his father last evening and he sounded "tired." He is concerned about his father's insight in regards to divorce proceedings. He states that the wedding was in [place] and is unsure this has been formalized in the [place]. He states that Pierre's has expressed to family members that their relationship is primarily that of roommates and there has not been romance for years. She likely only needs an eviction to end the relationship. Frederick also states that he and his sister have yet to see proof of the neurological d/o to which Pierre refers. Pierre is dysphoric with flat affect. He continues to endorse anxiety regarding being served divorce papers. He states concern that he has lost nearly 20 pounds since previous admission to [facility]. He is agreeable to review scheduling coordinator consult for this and anemic labs. We discuss discharge planning options with Kim Guzman LMSW. Pierre states he wants to relocate to [place] with his mother after the divorce is complete. In the meantime, he may have a friend who has an available apartment at a reduced cost in [place]. Pierre is notified of potential for [facility] and if he is appropriate, for longer term state hospitalization. Objective - Appearance Appearance: Thin Framed Dysmorphic Features: Yes Hygiene: Normal Grooming: Fairly Well Kept - Behavior Psychomotor Activities: Normal Exhibits Abnormal Movement: No - Attitude and Relatedness Attitude and Relatedness: Cooperative Eye Contact: Fair - Speech Quality: Unpressured Latencies: Normal Quantity: Appropriate - Mood Patient's Decription of Mood: "Anxious" - Affect Observed Affect: Depressed Affect Consistent with: Dysphoria - Thought Process Patient's Thought Process: Coherent, Goal Directed Thought Content: Yes Passive Wish, No Suicidal Planning, No Homicidal Ideation, No Paranoid Ideation - Sensorium Experiencing Hallucinations: No, Sensorium is Clear Type of Hallucinations: Visual: No, Auditory: No, Command: No - Level of Consciousness Level of Consciousness: Alert Orientation: Yes Intact, Yes Orientated to Time, Yes Orientated to Place, Yes Orientated to Person - Impulse Control Impulse Control: Poor - Insight and Judgement Insight and Judgement: Fair - Group Participation Particating in Group Activities: Yes - Medication Management Medication Management Adherence: Yes Assessment - Assessment Merits Inpatient Hospitalization: For Immediate Safety, For Stabilization, Consolidate Improvements, Pending Safe DC Plan Inpatient DSM-V Dx: F31.4 Clinical Impression: 67yo white male with history of bipolar d/o. He presented to ED with syncopal episode and was flagged for psychiatric needs. Recently, he has been hospitalized multiple times in the [place] system for suicidal gestures. He merits hospitalization for immediate safety and stabilization. Plan - Plan Treatment Plan: Name: ROYAL BARTON Birthdate: 1950 [id number] continue acute intensive psychiatric treatment. hold depakote. continue collaboration with hospitalist service. continue to obtain collateral information from family members. Continued Medication Management: Different Medication Medications: Current Medications Acetaminophen (Tylenol Tab*) 650 mg PO Q4H PRN PRN Reason: for pain; or Temp >101 F Acetaminophen/Butalbital/Caffeine (Fioricet Tab*) 1 tab PO Q6H PRN PRN Reason: HEADACHE Last Admin: 12/28/17 14:15 Dose: 1 tab Al Hydrox/Mg Hydrox/Simethicone (Maalox Plus*) 30 ml PO Q4H PRN PRN Reason: INDIGESTION Last Admin: 12/23/17 17:33 Dose: 30 ml Amlodipine Besylate (Norvasc Tab*) 5 mg PO DAILY [facility] Last Admin: 12/28/17 09:10 Dose: 5 mg Aripiprazole (Abilify Tab*) 5 mg PO DAILY [facility] Last Admin: 12/28/17 09:10 Dose: 5 mg Aspirin (Aspirin Ec Low Dose*) 81 mg PO DAILY [facility] Last Admin: 12/28/17 09:11 Dose: 81 mg Atorvastatin Calcium (Lipitor*) 20 mg PO DAILY [facility] PRN Reason: Protocol Last Admin: 12/28/17 09:10 Dose: 20 mg Clonazepam (Klonopin Tab(*)) 1 mg PO BID PRN PRN Reason: ANXIETY Last Admin: 12/28/17 09:09 Dose: 1 mg Duloxetine HCl (Cymbalta Cap*) 60 mg PO DAILY [facility] Last Admin: 12/28/17 09:10 Dose: 60 mg Fludrocortisone Acetate (Florinef Tab*) 0.1 mg PO DAILY [facility] Last Admin: 12/28/17 09:10 Dose: 0.1 mg Gabapentin (Neurontin Cap(*)) 600 mg PO TID [facility] Last Admin: 12/28/17 14:14 Dose: 600 mg Labetalol HCl (Trandate Tab*) 100 mg PO BID [facility] Last Admin: 12/28/17 09:10 Dose: 100 mg Losartan Potassium (Cozaar Tab*) 100 mg PO DAILY [facility] Last Admin: 12/28/17 09:09 Dose: 100 mg Nadolol (Corgard Tab*) 20 mg PO BID [facility] Last Admin: 12/28/17 09:11 Dose: 20 mg Omeprazole (Prilosec Cap*) 20 mg PO DAILY [facility] Last Admin: 12/28/17 09:10 Dose: 20 mg Potassium Chloride (Klor Con Er Tab*) 10 meq PO BID WITH MEALS [facility] Last Admin: 12/28/17 09:10 Dose: 10 meq - Discharge Plan Discharge Plan: Consider Longer Term Tx
[2017-12-29] MEDS: Butalb/Acetamin/Caff TAB* 1 TAB PO PRN ×2 (04:39→20:48)
[2017-12-29] MEDS: clonazePAM TAB(*) 1 MG PO PRN (06:27)
[2017-12-29] MEDS: Aspirin EC Low Dose* 81 MG TAB.EC PO SCH (08:58)
[2017-12-29] MEDS: ARIPiprazole TAB* 5 MG PO SCH (08:58)
[2017-12-29] MEDS: amLODIPine TAB* 5 MG PO SCH (08:58)
[2017-12-29] MEDS: Potassium Chlor TAB* 10 MEQ TAB.ER PO SCH ×2 (08:58→16:55)
[2017-12-29] MEDS: DULoxetine DR CAP* 60 MG CAP.DR PO SCH (08:59)
[2017-12-29] MEDS: Atorvastatin* 20 MG TAB PO SCH (08:59)
[2017-12-29] MEDS: Fludrocortisone Acetate TAB* 0.1 MG PO SCH (08:59)
[2017-12-29] MEDS: Gabapentin CAP(*) 300 MG PO SCH ×3 (08:59→20:50)
[2017-12-29] MEDS: Labetalol TAB* 100 MG PO SCH ×2 (09:01→20:51)
[2017-12-29] MEDS: Losartan TAB* 25 MG PO SCH (09:01)
[2017-12-29] MEDS: Nadolol TAB* 40 MG PO SCH ×2 (09:02→20:50)
[2017-12-29] MEDS: Omeprazole CAP* 20 MG PO SCH (09:03)
[2017-12-29 11:02] LABS: ABS Basophils 0 10^3/ul (0-0.2); ABS Eosinophils 0.1 10^3/ul (0-0.6); ABS Monocytes 0.6 10^3/ul (0-0.8); ABS Neutrophils 2.2 10^3/ul (1.5-7.7); ABS Nucleated RBC 0 10^3/ul; Eosinophil % 2.5 % (0-6); Hematocrit 32 % (42-52); Hemoglobin 10.1 g/dl (14.0-18.0); Mean Corpuscular HGB Conc 32 g/dl (31-36); Mean Corpuscular Hemoglobin 25 pg (27-31); Mean Corpuscular Volume 81 fL (80-94); Mean Platelet Volume 7 um3 (7.4-10.4); Nucleated Red Blood Cells % 0.1; Platelet Count 315 10^3/ul (150-450); Red Blood Count 3.98 10^6/ul (4.0-5.4); Red Cell Distribution Width 20 % (10.5-15); White Blood Count 3.9 10^3/ul (3.5-10.8)
[2017-12-29 11:09] LABS: INR 0.97 (0.77-1.02)
--- NOTE | 2017-12-29 11:52 | PN ---
MHU: Group Therapy Note - Service Type Service Type: 10945 Group Psychotherapy - Cognitive Behavioral Group Therapy ( CBT):Patient was attentive and participatory in CBT programming this morning, and remained in good behavioral control. Patient expressed positive insights regarding relevant treatment interventions and goals.
[2017-12-29] MEDS: Ropinirole TAB* 0.5 MG TAB PO SCH (20:49)
[2017-12-29] MEDS: Topiramate TAB(*) 25 MG PO SCH (20:50)
[2017-12-30] MEDS: DULoxetine DR CAP* 60 MG CAP.DR PO SCH (07:43)
[2017-12-30] MEDS: Potassium Chlor TAB* 10 MEQ TAB.ER PO SCH ×2 (07:43→16:15)
[2017-12-30] MEDS: Labetalol TAB* 100 MG PO SCH ×2 (07:43→20:12)
[2017-12-30] MEDS: Topiramate TAB(*) 25 MG PO SCH ×2 (07:43→20:13)
[2017-12-30] MEDS: Nadolol TAB* 40 MG PO SCH ×2 (07:44→20:14)
[2017-12-30] MEDS: Losartan TAB* 25 MG PO SCH (07:44)
[2017-12-30] MEDS: ARIPiprazole TAB* 5 MG PO SCH (07:44)
[2017-12-30] MEDS: clonazePAM TAB(*) 0.5 MG PO PRN (07:45)
[2017-12-30] MEDS: Omeprazole CAP* 20 MG PO SCH (07:45)
[2017-12-30] MEDS: Atorvastatin* 20 MG TAB PO SCH (07:45)
[2017-12-30] MEDS: Fludrocortisone Acetate TAB* 0.1 MG PO SCH (07:45)
[2017-12-30] MEDS: Aspirin EC Low Dose* 81 MG TAB.EC PO SCH (07:45)
[2017-12-30] MEDS: amLODIPine TAB* 5 MG PO SCH (07:45)
[2017-12-30] MEDS: Gabapentin CAP(*) 300 MG PO SCH ×3 (07:45→20:13)
--- NOTE | 2017-12-30 11:52 | PN ---
MHU: Group Therapy Note - Service Type Service Type: [id number] Group Psychotherapy - Cognitive Behavioral Group Therapy ( CBT):Patient was attentive and participatory in CBT programming this morning, and remained in good behavioral control. Patient expressed positive insights regarding relevant treatment interventions and goals.
[2017-12-30] MEDS: Butalb/Acetamin/Caff TAB* 1 TAB PO PRN (16:14)
--- NOTE | 2017-12-30 16:18 | PN ---
Subjective - Subjective Service Type: 23407 Hosp care 35 min high complexity Subjective: Patient is interactive in milieu and intermittently pleasant or demanding of staff. He uses wheelchair despite PT recommendations to ambulate with walker or cane. Patient exhibits poor insight into reason for hospitalization and minimizes suicidality. Discussed recent history of excessive sedating and antihypertensive medications that are likely precipitate of syncopal episodes. He was defensive and stated that he is not an "addict" because he does not take "street drugs." Termination Clerk provided education about over use of medications with or without substance use disorder. He requested information about DSM 5 criteria for bipolar d/o in order to educate his daughter. Termination Clerk instructed him to complete MMPI first. Patient requested Requip for RLS and states that this is the reason he sleeps less than 5 hours per night. Collateral obtained from daughter, José. She expresses concern in regards to validity of her father's stated diagnosis of degenerative d/o. Termination Clerk notified her we are awaiting records from [facility]. Also, she states he told her that this admission is purely non-psychiatric when she spoke to him since admission. She recalls that he told her the day of presentation to ED "I took all of my pills. I'm dying and have nothing to live for. Reyna left me." She agrees to participate in phone conference with her brother, their father and Dozer Operator and magnetic tape typewriter operator. See note by Kim Guzman LMSW for information about family meeting via phone conference. After phone conference, patient inquired about feedback given to him about provocative statements made to staff. For example, he stated that he cannot be kept forever and that if he wants to suicide then he will do so after hospitalization. Objective - Appearance Appearance: Thin Framed Dysmorphic Features: Yes Hygiene: Normal Grooming: Fairly Well Kept - Behavior Psychomotor Activities: Normal Exhibits Abnormal Movement: No - Attitude and Relatedness Attitude and Relatedness: Manipulative Eye Contact: Fair - Speech Quality: Unpressured Latencies: Normal Quantity: Appropriate - Mood Patient's Decription of Mood: "Upset" - Affect Observed Affect: Depressed Affect Consistent with: Dysphoria - Thought Process Patient's Thought Process: Coherent, Over Inclusive Thought Content: Yes Passive Wish, No Suicidal Planning, No Homicidal Ideation, No Paranoid Ideation - Sensorium Experiencing Hallucinations: No, Sensorium is Clear Type of Hallucinations: Visual: No, Auditory: No, Command: No - Level of Consciousness Level of Consciousness: Alert Orientation: Yes Intact, Yes Orientated to Time, Yes Orientated to Place, Yes Orientated to Person - Impulse Control Impulse Control: Tenuous - Insight and Judgement Insight and Judgement: Poor - Group Participation Particating in Group Activities: Yes - Medication Management Medication Management Adherence: Yes Assessment - Assessment Merits Inpatient Hospitalization: For Immediate Safety, For Stabilization, Consolidate Improvements, Pending Safe DC Plan Inpatient DSM-V Dx: F31.4 Clinical Impression: 67yo white male with history of bipolar d/o. He presented to ED with syncopal episode and was flagged for psychiatric needs. Recently, he has been hospitalized multiple times in the [place] system for suicidal gestures. He merits hospitalization for immediate safety and stabilization. Plan - Plan Treatment Plan: Name: ROYAL BARTON Birthdate: 1950 [id number] continue acute intensive psychiatric treatment. continue to decrease polypharmacy. awaiting records from [facility]. discharge planning to include outpatient providers and family members. Continued Medication Management: Different Medication Medications: Current Medications Acetaminophen (Tylenol Tab*) 650 mg PO Q8HR PRN PRN Reason: for pain; or Temp >101 F Acetaminophen/Butalbital/Caffeine (Fioricet Tab*) 1 tab PO DAILY PRN PRN Reason: HEADACHE Last Admin: 12/30/17 16:14 Dose: 1 tab Al Hydrox/Mg Hydrox/Simethicone (Maalox Plus*) 30 ml PO Q4H PRN PRN Reason: INDIGESTION Last Admin: 12/23/17 17:33 Dose: 30 ml Amlodipine Besylate (Norvasc Tab*) 5 mg PO DAILY [facility] Last Admin: 12/30/17 07:45 Dose: 5 mg Aripiprazole (Abilify Tab*) 7.5 mg PO DAILY [facility] Last Admin: 12/30/17 07:44 Dose: 7.5 mg Aspirin (Aspirin Ec Low Dose*) 81 mg PO DAILY [facility] Last Admin: 12/30/17 07:45 Dose: 81 mg Atorvastatin Calcium (Lipitor*) 20 mg PO DAILY [facility] PRN Reason: Protocol Last Admin: 12/30/17 07:45 Dose: 20 mg Clonazepam (Klonopin Tab(*)) 0.5 mg PO BID PRN PRN Reason: ANXIETY Last Admin: 12/30/17 07:45 Dose: 0.5 mg Duloxetine HCl (Cymbalta Cap*) 60 mg PO DAILY [facility] Last Admin: 12/30/17 07:43 Dose: 60 mg Fludrocortisone Acetate (Florinef Tab*) 0.1 mg PO DAILY [facility] Last Admin: 12/30/17 07:45 Dose: 0.1 mg Gabapentin (Neurontin Cap(*)) 600 mg PO TID [facility] Last Admin: 12/30/17 16:14 Dose: 600 mg Labetalol HCl (Trandate Tab*) 100 mg PO BID [facility] Last Admin: 12/30/17 07:43 Dose: 100 mg Losartan Potassium (Cozaar Tab*) 100 mg PO DAILY [facility] Last Admin: 12/30/17 07:44 Dose: 100 mg Nadolol (Corgard Tab*) 20 mg PO BID [facility] Last Admin: 12/30/17 07:44 Dose: 20 mg Omeprazole (Prilosec Cap*) 20 mg PO DAILY [facility] Last Admin: 12/30/17 07:45 Dose: 20 mg Potassium Chloride (Klor Con Er Tab*) 10 meq PO BID WITH MEALS [facility] Last Admin: 12/30/17 16:15 Dose: 10 meq Ropinirole HCl (Requip Tab*) 0.5 mg PO BEDTIME [facility] Last Admin: 12/29/17 20:49 Dose: 0.5 mg Topiramate (Topamax(*)) 25 mg PO BID [facility] Last Admin: 12/30/17 07:43 Dose: 25 mg - Discharge Plan Discharge Plan: Outpatient [facility]
[2017-12-30] MEDS: Ropinirole TAB* 0.5 MG TAB PO SCH (20:12)
[2017-12-31] MEDS: clonazePAM TAB(*) 0.5 MG PO PRN ×2 (08:07→20:40)
[2017-12-31] MEDS: Butalb/Acetamin/Caff TAB* 1 TAB PO PRN (08:07)
[2017-12-31] MEDS: Gabapentin CAP(*) 300 MG PO SCH ×3 (08:08→20:41)
[2017-12-31] MEDS: Potassium Chlor TAB* 10 MEQ TAB.ER PO SCH ×2 (08:08→16:51)
[2017-12-31] MEDS: Fludrocortisone Acetate TAB* 0.1 MG PO SCH (08:08)
[2017-12-31] MEDS: ARIPiprazole TAB* 5 MG PO SCH (08:09)
[2017-12-31] MEDS: Losartan TAB* 25 MG PO SCH (08:09)
[2017-12-31] MEDS: Nadolol TAB* 40 MG PO SCH ×2 (08:10→20:42)
[2017-12-31] MEDS: Aspirin EC Low Dose* 81 MG TAB.EC PO SCH (08:10)
[2017-12-31] MEDS: Omeprazole CAP* 20 MG PO SCH (08:11)
[2017-12-31] MEDS: amLODIPine TAB* 5 MG PO SCH (08:11)
[2017-12-31] MEDS: Labetalol TAB* 100 MG PO SCH ×2 (08:11→20:43)
[2017-12-31] MEDS: Atorvastatin* 20 MG TAB PO SCH (08:11)
[2017-12-31] MEDS: DULoxetine DR CAP* 60 MG CAP.DR PO SCH (08:11)
[2017-12-31] MEDS: Topiramate TAB(*) 25 MG PO SCH ×2 (08:11→20:41)
[2017-12-31] MEDS: Acetaminophen TAB* 325 MG PO PRN (11:22)
[2017-12-31] MEDS: Ropinirole TAB* 0.5 MG TAB PO SCH (20:41)
[2018-01-01] MEDS: Omeprazole CAP* 20 MG PO SCH (07:54)
[2018-01-01] MEDS: Aspirin EC Low Dose* 81 MG TAB.EC PO SCH (07:54)
[2018-01-01] MEDS: Losartan TAB* 25 MG PO SCH (07:54)
[2018-01-01] MEDS: Topiramate TAB(*) 25 MG PO SCH ×2 (07:54→20:20)
[2018-01-01] MEDS: Fludrocortisone Acetate TAB* 0.1 MG PO SCH (07:54)
[2018-01-01] MEDS: Atorvastatin* 20 MG TAB PO SCH (07:54)
[2018-01-01] MEDS: ARIPiprazole TAB* 5 MG PO SCH (07:54)
[2018-01-01] MEDS: Labetalol TAB* 100 MG PO SCH ×2 (07:55→20:20)
[2018-01-01] MEDS: Nadolol TAB* 40 MG PO SCH ×2 (07:55→20:21)
[2018-01-01] MEDS: Gabapentin CAP(*) 300 MG PO SCH ×3 (07:55→20:20)
[2018-01-01] MEDS: amLODIPine TAB* 5 MG PO SCH (07:55)
[2018-01-01] MEDS: DULoxetine DR CAP* 60 MG CAP.DR PO SCH (07:55)
[2018-01-01] MEDS: Potassium Chlor TAB* 10 MEQ TAB.ER PO SCH ×2 (07:56→16:16)
[2018-01-01] MEDS: clonazePAM TAB(*) 0.5 MG PO PRN ×2 (07:59→20:23)
[2018-01-01] MEDS: Butalb/Acetamin/Caff TAB* 1 TAB PO PRN (08:00)
[2018-01-01] MEDS: Ropinirole TAB* 0.5 MG TAB PO SCH (20:21)
[2018-01-01] MEDS: Acetaminophen TAB* 325 MG PO PRN (21:27)
[2018-01-02] MEDS: ARIPiprazole TAB* 5 MG PO SCH (07:54)
[2018-01-02] MEDS: Gabapentin CAP(*) 300 MG PO SCH ×3 (07:55→20:32)
[2018-01-02] MEDS: Potassium Chlor TAB* 10 MEQ TAB.ER PO SCH ×2 (07:56→16:18)
[2018-01-02] MEDS: Atorvastatin* 20 MG TAB PO SCH (07:56)
[2018-01-02] MEDS: Losartan TAB* 25 MG PO SCH (07:56)
[2018-01-02] MEDS: Aspirin EC Low Dose* 81 MG TAB.EC PO SCH (07:56)
[2018-01-02] MEDS: amLODIPine TAB* 5 MG PO SCH (07:56)
[2018-01-02] MEDS: DULoxetine DR CAP* 60 MG CAP.DR PO SCH (07:56)
[2018-01-02] MEDS: Omeprazole CAP* 20 MG PO SCH (07:57)
[2018-01-02] MEDS: Labetalol TAB* 100 MG PO SCH ×2 (07:57→20:32)
[2018-01-02] MEDS: Nadolol TAB* 40 MG PO SCH ×2 (07:57→20:32)
[2018-01-02] MEDS: Fludrocortisone Acetate TAB* 0.1 MG PO SCH (07:57)
[2018-01-02] MEDS: Topiramate TAB(*) 25 MG PO SCH ×2 (07:58→20:32)
[2018-01-02] MEDS: Butalb/Acetamin/Caff TAB* 1 TAB PO PRN (07:59)
[2018-01-02] MEDS: clonazePAM TAB(*) 0.5 MG PO PRN (08:02)
[2018-01-02] MEDS ORDERED: clonazePAM TAB(*) 0.5 MG PO PRN (16:01)
[2018-01-02] MEDS: Acetaminophen TAB* 325 MG PO PRN ×2 (16:17→23:30)
--- NOTE | 2018-01-02 16:22 | PN ---
Subjective - Subjective Service Type: 20244 Hosp care 25 min moderate complexity Subjective: Patient presents as euthymic and is interactive with both staff and peers. 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 He states "my goal is to be in a safe environment" and states he would like to relocate to [place]. He is planning on living in an apartment owned by a friend of his. He is agreeable to transfer primary and psychiatric care to the [place] office in [facility]. He gives examples of forward thinking: attending a symposium in January in [place] and caring for his mother as her DPOW. He states that it is "a good thing" if his car was sold as this will give his attorney general information to use in order for him to obtain another vehicle. He has been ambulating with and without cane without incident. He requests meloxicam for arthritic pain. He is agreeable to stop fioricet and decrease clonazepam. We discuss use of acetaminophen and likely caffeine withdrawal as a factor for headaches. He inquires about treatment for L scapula pain and attributes this to potential rotator cuff. Objective - Appearance Appearance: Thin Framed Dysmorphic Features: No Hygiene: Normal Grooming: Fairly Well Kept - Behavior Psychomotor Activities: Normal Exhibits Abnormal Movement: No - Attitude and Relatedness Attitude and Relatedness: Cooperative Eye Contact: Good - Speech Quality: Unpressured Latencies: Normal Quantity: Appropriate - Mood Patient's Decription of Mood: "Good" - Affect Observed Affect: Good Affect Consistent with: Euthymia - Thought Process Patient's Thought Process: Coherent, Goal Directed Thought Content: No Passive Wish, No Suicidal Planning, No Homicidal Ideation, No Paranoid Ideation - Sensorium Experiencing Hallucinations: No, Sensorium is Clear Type of Hallucinations: Visual: No, Auditory: No, Command: No - Level of Consciousness Level of Consciousness: Alert Orientation: Yes Intact, Yes Orientated to Time, Yes Orientated to Place, Yes Orientated to Person - Impulse Control Impulse Control: Tenuous - Insight and Judgement Insight and Judgement: Fair - Group Participation Particating in Group Activities: Yes - Medication Management Medication Management Adherence: Yes Assessment - Assessment Merits Inpatient Hospitalization: For Immediate Safety, For Stabilization, Consolidate Improvements, Pending Safe DC Plan Inpatient DSM-V Dx: F31.4 Clinical Impression: 67yo white male with history of bipolar d/o. He presented to ED with syncopal episode and was flagged for psychiatric needs. Recently, he has been hospitalized multiple times in the [place] system for suicidal gestures. He merits hospitalization for immediate safety and stabilization. Plan - Plan Treatment Plan: Name: ROYAL BARTON Birthdate: 1950 [id number] continue acute intensive psychiatric treatment. continue to decrease polypharmacy. awaiting records from [facility]. stop fioricet, decrease clonazepam and add meloxicam. allow computer privileges for discharge planning. discharge planning to include outpatient providers and family members. Continued Medication Management: Different Medication Medications: Current Medications Acetaminophen (Tylenol Tab*) 650 mg PO Q8HR PRN PRN Reason: for pain; or Temp >101 F Last Admin: 01/01/18 21:27 Dose: 650 mg Al Hydrox/Mg Hydrox/Simethicone (Maalox Plus*) 30 ml PO Q4H PRN PRN Reason: INDIGESTION Last Admin: 12/23/17 17:33 Dose: 30 ml Amlodipine Besylate (Norvasc Tab*) 5 mg PO DAILY [facility] Last Admin: 01/02/18 07:56 Dose: 5 mg Aripiprazole (Abilify Tab*) 7.5 mg PO DAILY [facility] Last Admin: 01/02/18 07:54 Dose: 7.5 mg Aspirin (Aspirin Ec Low Dose*) 81 mg PO DAILY [facility] Last Admin: 01/02/18 07:56 Dose: 81 mg Atorvastatin Calcium (Lipitor*) 20 mg PO DAILY [facility] PRN Reason: Protocol Last Admin: 01/02/18 07:56 Dose: 20 mg Clonazepam (Klonopin Tab(*)) 0.25 mg PO BID PRN PRN Reason: ANXIETY Duloxetine HCl (Cymbalta Cap*) 60 mg PO DAILY [facility] Last Admin: 01/02/18 07:56 Dose: 60 mg Fludrocortisone Acetate (Florinef Tab*) 0.1 mg PO DAILY [facility] Last Admin: 01/02/18 07:57 Dose: 0.1 mg Gabapentin (Neurontin Cap(*)) 600 mg PO TID [facility] Last Admin: 01/02/18 14:01 Dose: 600 mg Labetalol HCl (Trandate Tab*) 100 mg PO BID [facility] Last Admin: 01/02/18 07:57 Dose: 100 mg Losartan Potassium (Cozaar Tab*) 100 mg PO DAILY [facility] Last Admin: 01/02/18 07:56 Dose: 100 mg Meloxicam (Mobic(Nf)) 7.5 mg PO DAILY [facility] Nadolol (Corgard Tab*) 20 mg PO BID [facility] Last Admin: 01/02/18 07:57 Dose: 20 mg Omeprazole (Prilosec Cap*) 20 mg PO DAILY [facility] Last Admin: 01/02/18 07:57 Dose: 20 mg Potassium Chloride (Klor Con Er Tab*) 10 meq PO BID WITH MEALS [facility] Last Admin: 01/02/18 07:56 Dose: 10 meq Ropinirole HCl (Requip Tab*) 0.5 mg PO BEDTIME [facility] Last Admin: 01/01/18 20:21 Dose: 0.5 mg Topiramate (Topamax(*)) 25 mg PO BID [facility] Last Admin: 01/02/18 07:58 Dose: 25 mg - Discharge Plan Discharge Plan: Outpatient Follow Up Outpatient Program: [facility]
[2018-01-02] MEDS: CMCS:Meloxicam(NF) 7.5 MG TAB PO SCH (17:06)
[2018-01-02] MEDS: Ropinirole TAB* 0.5 MG TAB PO SCH (20:32)
[2018-01-03] MEDS: Gabapentin CAP(*) 300 MG PO SCH ×3 (08:05→20:19)
[2018-01-03] MEDS: Losartan TAB* 25 MG PO SCH (08:05)
[2018-01-03] MEDS: Atorvastatin* 20 MG TAB PO SCH (08:06)
[2018-01-03] MEDS: Potassium Chlor TAB* 10 MEQ TAB.ER PO SCH ×2 (08:06→16:48)
[2018-01-03] MEDS: DULoxetine DR CAP* 60 MG CAP.DR PO SCH (08:06)
[2018-01-03] MEDS: Acetaminophen TAB* 325 MG PO PRN ×3 (08:06→20:18)
[2018-01-03] MEDS: Aspirin EC Low Dose* 81 MG TAB.EC PO SCH (08:07)
[2018-01-03] MEDS: Omeprazole CAP* 20 MG PO SCH (08:07)
[2018-01-03] MEDS: Topiramate TAB(*) 25 MG PO SCH ×2 (08:07→20:20)
[2018-01-03] MEDS: amLODIPine TAB* 5 MG PO SCH (08:07)
[2018-01-03] MEDS: ARIPiprazole TAB* 5 MG PO SCH (08:08)
[2018-01-03] MEDS: Labetalol TAB* 100 MG PO SCH ×2 (08:12→20:20)
[2018-01-03] MEDS: CMCS:Meloxicam(NF) 7.5 MG TAB PO SCH (08:12)
[2018-01-03] MEDS: Fludrocortisone Acetate TAB* 0.1 MG PO SCH (08:12)
[2018-01-03] MEDS: Nadolol TAB* 40 MG PO SCH ×2 (08:13→20:20)
[2018-01-03] MEDS: Mirtazapine TAB* 15 MG PO PRN (20:17)
[2018-01-03] MEDS: clonazePAM TAB(*) 0.5 MG PO PRN (20:17)
[2018-01-03] MEDS: Ropinirole TAB* 0.5 MG TAB PO SCH (20:19)
[2018-01-04] MEDS: Gabapentin CAP(*) 300 MG PO SCH ×3 (08:46→20:36)
[2018-01-04] MEDS: Losartan TAB* 25 MG PO SCH (08:47)
[2018-01-04] MEDS: Potassium Chlor TAB* 10 MEQ TAB.ER PO SCH ×2 (08:49→17:33)
[2018-01-04] MEDS: ARIPiprazole TAB* 5 MG PO SCH (08:50)
[2018-01-04] MEDS: CMCS:Meloxicam(NF) 7.5 MG TAB PO SCH (08:51)
[2018-01-04] MEDS: Atorvastatin* 20 MG TAB PO SCH (08:51)
[2018-01-04] MEDS: Topiramate TAB(*) 25 MG PO SCH ×2 (08:51→20:36)
[2018-01-04] MEDS: amLODIPine TAB* 5 MG PO SCH (08:51)
[2018-01-04] MEDS: Aspirin EC Low Dose* 81 MG TAB.EC PO SCH (08:51)
[2018-01-04] MEDS: DULoxetine DR CAP* 60 MG CAP.DR PO SCH (08:51)
[2018-01-04] MEDS: Omeprazole CAP* 20 MG PO SCH (08:52)
[2018-01-04] MEDS: Labetalol TAB* 100 MG PO SCH ×2 (08:52→20:37)
[2018-01-04] MEDS: Nadolol TAB* 40 MG PO SCH ×2 (08:52→20:36)
[2018-01-04] MEDS: Fludrocortisone Acetate TAB* 0.1 MG PO SCH (08:52)
[2018-01-04] MEDS: Acetaminophen TAB* 325 MG PO PRN (14:25)
[2018-01-04] MEDS: Ropinirole TAB* 0.5 MG TAB PO SCH (20:36)
[2018-01-04] MEDS: Mirtazapine TAB* 15 MG PO PRN (20:37)
[2018-01-04] MEDS: clonazePAM TAB(*) 0.5 MG PO PRN (20:37)
[2018-01-05] MEDS: Losartan TAB* 25 MG PO SCH (07:33)
[2018-01-05] MEDS: Gabapentin CAP(*) 300 MG PO SCH ×3 (07:34→20:46)
[2018-01-05] MEDS: ARIPiprazole TAB* 5 MG PO SCH (07:34)
[2018-01-05] MEDS: Atorvastatin* 20 MG TAB PO SCH (07:35)
[2018-01-05] MEDS: CMCS:Meloxicam(NF) 7.5 MG TAB PO SCH (07:35)
[2018-01-05] MEDS: Potassium Chlor TAB* 10 MEQ TAB.ER PO SCH ×2 (07:35→17:53)
[2018-01-05] MEDS: Omeprazole CAP* 20 MG PO SCH (07:35)
[2018-01-05] MEDS: Nadolol TAB* 40 MG PO SCH ×2 (07:35→20:46)
[2018-01-05] MEDS: Labetalol TAB* 100 MG PO SCH ×2 (07:36→20:46)
[2018-01-05] MEDS: DULoxetine DR CAP* 60 MG CAP.DR PO SCH (07:36)
[2018-01-05] MEDS: Topiramate TAB(*) 25 MG PO SCH ×2 (07:36→20:46)
[2018-01-05] MEDS: Fludrocortisone Acetate TAB* 0.1 MG PO SCH (07:36)
[2018-01-05] MEDS: Aspirin EC Low Dose* 81 MG TAB.EC PO SCH (07:36)
[2018-01-05] MEDS: amLODIPine TAB* 5 MG PO SCH (07:36)
--- NOTE | 2018-01-05 13:52 | PN ---
MHU: Group Therapy Note - Service Type Service Type: 09214 Group Psychotherapy - Cognitive Behavioral Group Therapy ( CBT):Patient was attentive and participatory in CBT programming this morning, and remained in good behavioral control. Patient expressed positive insights regarding relevant treatment interventions and goals.
--- NOTE | 2018-01-05 15:01 | PN ---
<RemyJazz vickers - Last Filed: 01/05/18 14:47> Subjective - Subjective Service Type: 40050 Hosp care 25 min moderate complexity Subjective: Patient states he is feeling anxious the closer it gets to being discharged. Reports he slept aprox. 4.5 hr last night. Talks about feeling that his home situation is toxic and he is relieved to be moving forward. Reports he developed "major tinnitus, bilat." this morning and it continues as we speak. He is noted to be sitting comfortably with free flowing speech and does not appear to be distracted in the least by the noise in the milieu close to where we speak. He is aware that he has been weaned off Fioricet and Klonopin. Objective - Appearance Appearance: Thin Framed Dysmorphic Features: Yes Hygiene: Normal Grooming: Disheveled - Behavior Psychomotor Activities: Abnormal-Decreased Exhibits Abnormal Movement: Yes - Attitude and Relatedness Attitude and Relatedness: Cooperative Eye Contact: Good - Speech Quality: Unpressured Latencies: Normal Quantity: Appropriate - Mood Patient's Decription of Mood: "flat" - Affect Observed Affect: Euphoric Affect Consistent with: Euthymia - Thought Process Patient's Thought Process: Coherent, Goal Directed Thought Content: No Passive Wish, No Suicidal Planning, No Homicidal Ideation, No Paranoid Ideation - Sensorium Experiencing Hallucinations: No, Sensorium is Clear Type of Hallucinations: Visual: No, Auditory: No, Command: No - Level of Consciousness Level of Consciousness: Alert Orientation: Yes Intact, Yes Orientated to Time, Yes Orientated to Place, Yes Orientated to Person - Impulse Control Impulse Control: Intact - Insight and Judgement Insight and Judgement: Poor - Group Participation Particating in Group Activities: Yes - Medication Management Medication Management Adherence: Yes Assessment - Assessment Merits Inpatient Hospitalization: Consolidate Improvements, Pending Safe DC Plan Inpatient DSM-V Dx: F31.4 Clinical Impression: 67 yo., , white male presented with hx of bipolar d/o. Presented to the ED with syncopal episode and was flagged for psychiatric needs. Recently he has been hospitalized multiple times in [place] system with suicidal gestures. He merits continued hospitalization for consolidation of improvements and safe discharge planning. Plan - Plan Treatment Plan: Name: ROYAL BARTON Birthdate: 1950 [id number] Medications: Current Medications Acetaminophen (Tylenol Tab*) 650 mg PO Q8HR PRN PRN Reason: for pain; or Temp >101 F Last Admin: 01/04/18 14:25 Dose: 650 mg Al Hydrox/Mg Hydrox/Simethicone (Maalox Plus*) 30 ml PO Q4H PRN PRN Reason: INDIGESTION Last Admin: 12/23/17 17:33 Dose: 30 ml Amlodipine Besylate (Norvasc Tab*) 5 mg PO DAILY [facility] Last Admin: 01/05/18 07:36 Dose: 5 mg Aripiprazole (Abilify Tab*) 7.5 mg PO DAILY [facility] Last Admin: 01/05/18 07:34 Dose: 7.5 mg Aspirin (Aspirin Ec Low Dose*) 81 mg PO DAILY [facility] Last Admin: 01/05/18 07:36 Dose: 81 mg Atorvastatin Calcium (Lipitor*) 20 mg PO DAILY [facility] PRN Reason: Protocol Last Admin: 01/05/18 07:35 Dose: 20 mg Clonazepam (Klonopin Tab(*)) 0.25 mg PO DAILY PRN PRN Reason: ANXIETY Last Admin: 01/04/18 20:37 Dose: 0.25 mg Duloxetine HCl (Cymbalta Cap*) 60 mg PO DAILY [facility] Last Admin: 01/05/18 07:36 Dose: 60 mg Fludrocortisone Acetate (Florinef Tab*) 0.1 mg PO DAILY [facility] Last Admin: 01/05/18 07:36 Dose: 0.1 mg Gabapentin (Neurontin Cap(*)) 600 mg PO TID [facility] Last Admin: 01/05/18 14:26 Dose: 600 mg Labetalol HCl (Trandate Tab*) 100 mg PO BID [facility] Last Admin: 01/05/18 07:36 Dose: 100 mg Losartan Potassium (Cozaar Tab*) 100 mg PO DAILY [facility] Last Admin: 01/05/18 07:33 Dose: 100 mg Meloxicam (Mobic(Nf)) 7.5 mg PO DAILY [facility] Last Admin: 01/05/18 07:35 Dose: 7.5 mg Mirtazapine (Remeron Tab*) 7.5 mg PO BEDTIME PRN PRN Reason: SLEEP Last Admin: 01/04/18 20:37 Dose: 7.5 mg Nadolol (Corgard Tab*) 20 mg PO BID [facility] Last Admin: 01/05/18 07:35 Dose: 20 mg Omeprazole (Prilosec Cap*) 20 mg PO DAILY [facility] Last Admin: 01/05/18 07:35 Dose: 20 mg Potassium Chloride (Klor Con Er Tab*) 10 meq PO BID WITH MEALS [facility] Last Admin: 01/05/18 07:35 Dose: 10 meq Ropinirole HCl (Requip Tab*) 0.5 mg PO BEDTIME [facility] Last Admin: 01/04/18 20:36 Dose: 0.5 mg Topiramate (Topamax(*)) 25 mg PO BID [facility] Last Admin: 01/05/18 07:36 Dose: 25 mg <Ruth Escobar - Last Filed: 01/05/18 15:27> Plan - Plan Treatment Plan: Name: ROYAL BARTON Birthdate: 1950 [id number] continue acute intensive psychiatric treatment. decrease observation to q30min as patient has been ambulating without asisstive devices. discharge planning to include family and outpatient providers. Continued Medication Management: Different Medication Medications: Current Medications Acetaminophen (Tylenol Tab*) 650 mg PO Q8HR PRN PRN Reason: for pain; or Temp >101 F Last Admin: 01/04/18 14:25 Dose: 650 mg Al Hydrox/Mg Hydrox/Simethicone (Maalox Plus*) 30 ml PO Q4H PRN PRN Reason: INDIGESTION Last Admin: 12/23/17 17:33 Dose: 30 ml Amlodipine Besylate (Norvasc Tab*) 5 mg PO DAILY [facility] Last Admin: 01/05/18 07:36 Dose: 5 mg Aripiprazole (Abilify Tab*) 7.5 mg PO DAILY [facility] Last Admin: 01/05/18 07:34 Dose: 7.5 mg Aspirin (Aspirin Ec Low Dose*) 81 mg PO DAILY [facility] Last Admin: 01/05/18 07:36 Dose: 81 mg Atorvastatin Calcium (Lipitor*) 20 mg PO DAILY [facility] PRN Reason: Protocol Last Admin: 01/05/18 07:35 Dose: 20 mg Clonazepam (Klonopin Tab(*)) 0.25 mg PO DAILY PRN PRN Reason: ANXIETY Last Admin: 01/04/18 20:37 Dose: 0.25 mg Duloxetine HCl (Cymbalta Cap*) 60 mg PO DAILY [facility] Last Admin: 01/05/18 07:36 Dose: 60 mg Fludrocortisone Acetate (Florinef Tab*) 0.1 mg PO DAILY [facility] Last Admin: 01/05/18 07:36 Dose: 0.1 mg Gabapentin (Neurontin Cap(*)) 600 mg PO TID [facility] Last Admin: 01/05/18 14:26 Dose: 600 mg Labetalol HCl (Trandate Tab*) 100 mg PO BID [facility] Last Admin: 01/05/18 07:36 Dose: 100 mg Losartan Potassium (Cozaar Tab*) 100 mg PO DAILY [facility] Last Admin: 01/05/18 07:33 Dose: 100 mg Meloxicam (Mobic(Nf)) 7.5 mg PO DAILY [facility] Last Admin: 01/05/18 07:35 Dose: 7.5 mg Mirtazapine (Remeron Tab*) 7.5 mg PO BEDTIME PRN PRN Reason: SLEEP Last Admin: 01/04/18 20:37 Dose: 7.5 mg Nadolol (Corgard Tab*) 20 mg PO BID [facility] Last Admin: 01/05/18 07:35 Dose: 20 mg Omeprazole (Prilosec Cap*) 20 mg PO DAILY [facility] Last Admin: 01/05/18 07:35 Dose: 20 mg Potassium Chloride (Klor Con Er Tab*) 10 meq PO BID WITH MEALS [facility] Last Admin: 01/05/18 07:35 Dose: 10 meq Ropinirole HCl (Requip Tab*) 0.5 mg PO BEDTIME [facility] Last Admin: 01/04/18 20:36 Dose: 0.5 mg Topiramate (Topamax(*)) 25 mg PO BID [facility] Last Admin: 01/05/18 07:36 Dose: 25 mg - Discharge Plan Discharge Plan: Outpatient Follow Up
--- NOTE | 2018-01-05 16:29 | PN ---
MHU: Group Therapy Note - Service Type Service Type: [id number] Group Psychotherapy - Medication Education Group: Patient was attentive and participatory in group, and remained in good behavioral control. Patient expressed positive insights regarding relevant treatment interventions. Patient stated understanding of material discussed and had appropriate questions.
[2018-01-05] MEDS: clonazePAM TAB(*) 0.5 MG PO PRN (20:45)
[2018-01-05] MEDS: Acetaminophen TAB* 325 MG PO PRN (20:45)
[2018-01-05] MEDS: Mirtazapine TAB* 15 MG PO PRN (20:45)
[2018-01-05] MEDS: Ropinirole TAB* 0.5 MG TAB PO SCH (20:46)
[2018-01-06 07:46] LABS: ABS Basophils 0.1 10^3/ul (0-0.2); ABS Eosinophils 0.1 10^3/ul (0-0.6); ABS Lymphocytes 1.4 10^3/ul (1.0-4.8); ABS Monocytes 0.6 10^3/ul (0-0.8); ABS Nucleated RBC 0 10^3/ul; Eosinophil % 3.3 % (0-6); Hematocrit 32 % (42-52); Hemoglobin 10.1 g/dl (14.0-18.0); Mean Corpuscular HGB Conc 32 g/dl (31-36); Mean Corpuscular Hemoglobin 25 pg (27-31); Mean Corpuscular Volume 80 fL (80-94); Mean Platelet Volume 7.2 um3 (7.4-10.4); Nucleated Red Blood Cells % 0; Platelet Count 289 10^3/ul (150-450); Red Cell Distribution Width 19 % (10.5-15); White Blood Count 4.2 10^3/ul (3.5-10.8)
[2018-01-06 07:52] LABS: EGFR Non-African American 99.6 (>60)
[2018-01-06] MEDS: Gabapentin CAP(*) 300 MG PO SCH ×3 (09:13→21:00)
[2018-01-06] MEDS: amLODIPine TAB* 5 MG PO SCH (09:13)
[2018-01-06] MEDS: Potassium Chlor TAB* 10 MEQ TAB.ER PO SCH ×2 (09:13→17:54)
[2018-01-06] MEDS: ARIPiprazole TAB* 5 MG PO SCH (09:14)
[2018-01-06] MEDS: Aspirin EC Low Dose* 81 MG TAB.EC PO SCH (09:14)
[2018-01-06] MEDS: Atorvastatin* 20 MG TAB PO SCH (09:14)
[2018-01-06] MEDS: DULoxetine DR CAP* 60 MG CAP.DR PO SCH (09:15)
[2018-01-06] MEDS: Labetalol TAB* 100 MG PO SCH ×2 (09:15→21:00)
[2018-01-06] MEDS: Nadolol TAB* 40 MG PO SCH ×2 (09:15→21:00)
[2018-01-06] MEDS: Losartan TAB* 25 MG PO SCH (09:15)
[2018-01-06] MEDS: CMCS:Meloxicam(NF) 7.5 MG TAB PO SCH (09:15)
[2018-01-06] MEDS: Fludrocortisone Acetate TAB* 0.1 MG PO SCH (09:15)
[2018-01-06] MEDS: Omeprazole CAP* 20 MG PO SCH (09:16)
[2018-01-06] MEDS: Topiramate TAB(*) 25 MG PO SCH ×2 (09:16→21:00)
--- NOTE | 2018-01-06 12:00 | PN ---
MHU: Group Therapy Note - Service Type Service Type: [id number] Group Psychotherapy - Cognitive Behavioral Group Therapy ( CBT):Patient was attentive and participatory in CBT programming this morning, and remained in good behavioral control. Patient expressed positive insights regarding relevant treatment interventions and goals.
[2018-01-06] MEDS: Ropinirole TAB* 0.5 MG TAB PO SCH (21:00)
[2018-01-06] MEDS: Mirtazapine TAB* 15 MG PO PRN (21:01)
[2018-01-07] MEDS: CMCS:Meloxicam(NF) 7.5 MG TAB PO SCH (08:00)
[2018-01-07] MEDS: Atorvastatin* 20 MG TAB PO SCH (08:00)
[2018-01-07] MEDS: Losartan TAB* 25 MG PO SCH (08:01)
[2018-01-07] MEDS: Gabapentin CAP(*) 300 MG PO SCH ×3 (08:02→20:22)
[2018-01-07] MEDS: ARIPiprazole TAB* 5 MG PO SCH (08:02)
[2018-01-07] MEDS: Acetaminophen TAB* 325 MG PO PRN (08:03)
[2018-01-07] MEDS: DULoxetine DR CAP* 60 MG CAP.DR PO SCH (08:03)
[2018-01-07] MEDS: Labetalol TAB* 100 MG PO SCH ×2 (08:04→20:22)
[2018-01-07] MEDS: Omeprazole CAP* 20 MG PO SCH (08:04)
[2018-01-07] MEDS: Potassium Chlor TAB* 10 MEQ TAB.ER PO SCH ×2 (08:04→17:59)
[2018-01-07] MEDS: amLODIPine TAB* 5 MG PO SCH (08:04)
[2018-01-07] MEDS: Topiramate TAB(*) 25 MG PO SCH ×2 (08:05→20:23)
[2018-01-07] MEDS: Nadolol TAB* 40 MG PO SCH ×2 (08:05→20:24)
[2018-01-07] MEDS: Aspirin EC Low Dose* 81 MG TAB.EC PO SCH (08:06)
[2018-01-07] MEDS: Fludrocortisone Acetate TAB* 0.1 MG PO SCH (09:53)
[2018-01-07] MEDS: Ropinirole TAB* 0.5 MG TAB PO SCH (20:22)
[2018-01-07] MEDS: Mirtazapine TAB* 15 MG PO PRN (20:23)
[2018-01-08] MEDS: amLODIPine TAB* 5 MG PO SCH (07:33)
[2018-01-08] MEDS: Potassium Chlor TAB* 10 MEQ TAB.ER PO SCH ×2 (07:33→17:20)
[2018-01-08] MEDS: DULoxetine DR CAP* 60 MG CAP.DR PO SCH (07:34)
[2018-01-08] MEDS: Atorvastatin* 20 MG TAB PO SCH (07:34)
[2018-01-08] MEDS: Aspirin EC Low Dose* 81 MG TAB.EC PO SCH (07:34)
[2018-01-08] MEDS: Fludrocortisone Acetate TAB* 0.1 MG PO SCH (07:35)
[2018-01-08] MEDS: Gabapentin CAP(*) 300 MG PO SCH ×3 (07:35→20:42)
[2018-01-08] MEDS: Losartan TAB* 25 MG PO SCH (07:36)
[2018-01-08] MEDS: Labetalol TAB* 100 MG PO SCH ×2 (07:36→20:42)
[2018-01-08] MEDS: Nadolol TAB* 40 MG PO SCH ×2 (07:37→20:42)
[2018-01-08] MEDS: CMCS:Meloxicam(NF) 7.5 MG TAB PO SCH (07:37)
[2018-01-08] MEDS: Topiramate TAB(*) 25 MG PO SCH ×2 (07:38→20:41)
[2018-01-08] MEDS: ARIPiprazole TAB* 5 MG PO SCH (07:38)
[2018-01-08] MEDS: Omeprazole CAP* 20 MG PO SCH (07:38)
[2018-01-08] MEDS: Ropinirole TAB* 0.5 MG TAB PO SCH (20:42)
[2018-01-08] MEDS: Mirtazapine TAB* 15 MG PO PRN (20:42)
[2018-01-09] MEDS: Nadolol TAB* 40 MG PO SCH (07:49)
[2018-01-09] MEDS: Gabapentin CAP(*) 300 MG PO SCH ×2 (07:50→14:01)
[2018-01-09] MEDS: CMCS:Meloxicam(NF) 7.5 MG TAB PO SCH (07:50)
[2018-01-09] MEDS: ARIPiprazole TAB* 5 MG PO SCH (07:51)
[2018-01-09] MEDS: Losartan TAB* 25 MG PO SCH (07:51)
[2018-01-09] MEDS: Atorvastatin* 20 MG TAB PO SCH (07:51)
[2018-01-09] MEDS: Omeprazole CAP* 20 MG PO SCH (07:51)
[2018-01-09] MEDS: Labetalol TAB* 100 MG PO SCH (07:51)
[2018-01-09] MEDS: Fludrocortisone Acetate TAB* 0.1 MG PO SCH (07:51)
[2018-01-09] MEDS: amLODIPine TAB* 5 MG PO SCH (07:52)
[2018-01-09] MEDS: Aspirin EC Low Dose* 81 MG TAB.EC PO SCH (07:52)
[2018-01-09] MEDS: Topiramate TAB(*) 25 MG PO SCH (07:52)
[2018-01-09] MEDS: DULoxetine DR CAP* 60 MG CAP.DR PO SCH (07:52)
[2018-01-09] MEDS: Potassium Chlor TAB* 10 MEQ TAB.ER PO SCH (07:52)
[2018-01-09 08:41] VITALS: BP 115/77
--- NOTE | 2018-01-09 13:15 | PN ---
MHU: Group Therapy Note - Service Type Service Type: 40398 Group Psychotherapy - Cognitive Behavioral Group Therapy ( CBT):Patient was attentive and participatory in CBT programming this morning, and remained in good behavioral control. Patient expressed positive insights regarding relevant treatment interventions and goals.
--- NOTE | 2018-01-10 08:21 | DS ---
Subjective - Subjective Service Types: 67082 Hosp DC Day Mgmt complex over 30 min Discharge Date: 01/09/18 Treatment Course & Assessment Clinical Course & Impression: 67yo white male with history of bipolar d/o. He presented to ED with syncopal episode and was flagged for psychiatric needs. Recently, he has been hospitalized multiple times in the [place] system for suicidal gestures. He merits hospitalization for immediate safety and stabilization. Inpatient DSM-V Dx: F31.4 Discharge Planning - Discharge Planning Discharge Plan: Outpatient Follow Up Outpatient Program: [facility] Recommendations for Continuing Care: Medication Management, Psychotherapy, Primary Care Followup, Specialty Followup Medications: Ambulatory Orders ARIPiprazole TAB* [Abilify TAB*] 7.5 mg PO DAILY #11 tab 01/09/18 Aspirin EC Low Dose* [Ecotrin EC Low Dose 81 MG*] 81 mg PO DAILY #7 tab.ec 01/09 DULoxetine CAP* [Cymbalta CAP*] 60 mg PO DAILY #7 cap. 01/09/18 Fludrocortisone Acetate TAB* [Florinef TAB*] 0.1 mg PO DAILY #7 tab 01/09/18 Gabapentin CAP(*) [Neurontin 300 CAP(*)] 600 mg PO TID #21 cap 01/09/18 Labetalol TAB* [Trandate TAB*] 200 mg PO BID #14 tab 01/09/18 Losartan TAB* [Cozaar TAB*] 100 mg PO DAILY #28 tab 01/09/18 Meloxicam(NF) [Mobic(NF)] 7.5 mg PO DAILY #7 tab 01/09/18 Mirtazapine TAB* [Remeron TAB*] 7.5 mg PO BEDTIME PRN #7 tab 01/09/18 Nadolol (NF) 20 mg PO BID #14 tab 01/09/18 Omeprazole CAP* [Prilosec CAP* 20 MG] 20 mg PO DAILY #7 cap. 01/09/18 Potassium Chlor TAB* [Klor Con ER TAB 10 MEQ*] 10 meq PO BID WITH MEALS #14 tab.er 01/09/18 Ropinirole TAB* [Requip TAB*] 0.5 mg PO BEDTIME #7 tab 01/09/18 Rosuvastatin (NF) [Crestor (NF)] 10 mg PO DAILY #7 tab 01/09/18 Topiramate TAB(*) [Topamax 25 MG tab] 25 mg PO BID #14 tab 01/09/18 amLODIPine TAB* [Norvasc 5 mg TAB*] 5 mg PO DAILY #7 tab 01/09/18 Fioricet and clonazepam were discontinued. Discharge Planning: Prescriptions provided for discharge [X] Yes [] No Follow up care details as per social work arrangements. Psychiatrist, Dr Butts-- 01/10/18 at 2:30pm Choir Accompanist, Dr Grayson- 01/11/18 at 9:00am Patient response to discharge plan: [X] eager for discharge [X] agreeable with discharge plan [] ambivalent about discharge [] disagrees with discharge today
--- NOTE | 2018-01-10 15:16 | CONS ---
PSYCHOLOGICAL REPORT: DATE OF CONSULT: 12/30/17 REASON FOR REFERAL: Sean was referred for psychological testing to assist with diagnostic impressio n secondary to historical diagnosis of a bipolar disorder. Concerns also revolve around possible leth ality. TEST ADMINISTERED: Sean completed the [place] Multiphasic Personality Inventory- 2 (MMPI-2). He was given feedback in individual conversation regarding test results. BEHAVIORAL OBSERVATIONS: Sean is a bearded 67-year-old who has experienced encroaching de pression secondary to marital conflict as well as recent medical diagnostic concerns. He is concerne d about the possibility of him having developed a neurodegenerative process which he is concerned abo ut. He remains concerned about this as a rule out diagnostic impression despite physician's reassura nce that he does not evidence symptoms of it to the level of being diagnosable presently. Of more ac kitty concern is Sean' barbiturate abuse. Apparently, he has obtained prescriptions from different doc tors in recent months and concerns are that he had been either overdosing intentionally or forgetting that he had taken medications. Regardless, he has been overusing his medications which may have bee n the contributing factors to his difficulties with hypotension. Sean has been cooperative with efforts to assess and treat. He has been a consistent participant in cognitive behavioral psychotherapy groups during his rather lengthy stay at this facility. He engag es in group dynamic in a very thoughtful fashion and is empathic with peers and staff. He ini tiates thoughtful clinical conversation and provides relevant examples from his own experiences in a forthright fashion. RELEVANT HISTORY: Sean has been from his first since the late s. They have 3 grown children together, 2 of which were involved in a family conference call that involved this technical document writer. Irwin maxwell is an commercial attorney in [place] while his daughter José is in medical school in [place]. Both impress ed as concerned and active family members who were particularly active in discussion in helping to un derstand complexities of caring for Sean' mother who is domiciled in [place]. She apparently suffer s from dementia. 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 He mock d his second who works for [employer] and has been quite successful. However, she is 20 years younger and has initiated a separation. Sean has had difficulty processing this separation tayo arrieta his concerns about financial matters as well as living situations. Although he acknowledges the james yates has experienced great conflict especially in recent months, he feels as sense of loss as well as a sense of status. TEST RESULTS: Sean provides an extremely elevated profile on this administration of the MMPI-2 liborio arrieta elevated all 3 emotional duress scales in an exaggerated fashion as well as elevating the lie scal e to a T score of 95. This is rather unusual as it implies both exaggeration of pathology as well as denial thereof. Persons who elevate the lie scale otherwise are often described as holding themselve s to higher than expected moral reasoning or behavioral expectations. Regardless, Sean elevates 7 of the 10 clinical indices, all within a T-score of 75 to 85. The scales he does not elevate are the m asculine feminine, hypomania and social introversion scales. Diagnostic impression does not support historical diagnosis of a bipolar disorder, but seems to be mo re descriptive of characterological vulnerabilities consistent with borderline personality function. This sounds to be commensurate with his recent difficulties and escalating symptomatology leading to his hospitalization. IMPRESSIONS AND RECOMMENDATIONS: Discussion with Sean addressed various symptoms of borderline pers onality disorder in the group context and followthrough with individual conversation. Deeper discuss ion of case history reveals a fair amount of fairly traumatic family experiences which this technical document writer shaheen chowdhury not get into in much detail other than that his adult children described feeling traumatized by alea e of his behaviors. Ongoing treatment with Sean should consolidate medications to a single provider as much as this is reasonable. Concerns about doctor shopping perhaps were part of his misuse of me dications. He will need followup treatment to provide emotional support as Sean remains a very vuln erable demographic for engaging in self-injurious or suicidal behaviors. Given his age as well as re cent acute stressors such as separation from this , he remains a high concern for possible lethal ity. As such, followup [facility] with recom mended followup thorough private mental health providers. Sean impresses as being willing and able to engage in followup care appropriately as well as to continue involving his children and continuing family dynamic in a counseling session. DIAGNOSTIC IMPRESSION: Supports a major depressive disorder, severe, without psychosis with continui ng rule out of borderline personality traits. [id number]/CPS #: [id number]
== END 2018-01-09 16:00 | disposition home or self-care (01) | DRG 885 ==
LOC: EDBD → ED 13:29 → BSU 12-23 14:46
PROVIDERS: ADMIT Psychiatry & Neurology Psychiatry; ATTEND Psychiatry & Neurology Psychiatry
DX: F31.4 Bipolar disorder, current episode depressed, severe, without psychotic features (principal); G23.2 Striatonigral degeneration; M32.9 Systemic lupus erythematosus, unspecified; D70.9 Neutropenia, unspecified; R45.851 Suicidal ideations; I10 Essential (primary) hypertension; R51 Headache; I95.1 Orthostatic hypotension; D50.9 Iron deficiency anemia, unspecified; Z86.711 Personal history of pulmonary embolism; Z86.73 Personal history of transient ischemic attack (TIA), and cerebral infarction without residual deficits; Z96.643 Presence of artificial hip joint, bilateral; Z96.651 Presence of right artificial knee joint; Z88.8 Allergy status to other drugs, medicaments and biological substances; Z82.5 Family history of asthma and other chronic lower respiratory diseases; Z84.89 Family history of other specified conditions
CPT/HCPCS: 36415; 70450; 71046; 80048; 80053; 80061; 80164; 80307; 80320; 80329; 81003; 82533; 82607; 82728; 82746; 83010; 83036; 83540; 83550; 83615; 83735; 84443; 84466; 85025; 85045; 85060; 85610; 85730; 90853; 93005; 99222; 99231; 99232; 99233; 99238; 99284; A9270-GY; G0480